=== PATIENT | male | born 1970 | race Hispanic/Latino ===

== ENCOUNTER 2025-03-08 13:30 | Observation (INO) | payer SELFPAY ==
[2025-03-08] VITALS (28 sets, daily range): BP systolic 151–206; BP diastolic 83–109; PULSE 59–80; RESP 13–27; TEMP 36.3; O2SAT 93–99
--- NOTE | ~2025-03-08 | CT_ITS ---
CTA brain carotid Ordering provider: Luisito Gordon MD History: . Acute CVA . Comparison: March 09, 2025 Technique: CT angiogram head and neck was performed following timed intravenous injection of contrast . Thin slice axial images and reformatted coronal images were obtained. Three dimensional reformatted images of the brain were also obtained using a [employer] workstation. Radiation reduction technique ut ilized. The dose-length product was 1985.85 mGy-cm. 100 ML Omnipaque 350 was given IV. FINDINGS: HEAD: --ANTERIOR AND MIDDLE CEREBRAL ARTERIES AND BRANCHES: Normal caliber and contour. --INTERNAL CAROTID ARTERIES: Mild atheromatous disease but no significant stenosis. No occlusion. --BASILAR ARTERY AND BRANCHES: Dominant left vertebral artery. Normal caliber and contour. No atherom atous disease. --POSTERIOR CEREBRAL ARTERIES: Possible narrowing in the right P1 segment. Otherwise, Normal caliber and contour --POSTERIOR COMMUNICATING ARTERIES: Not visualized which is probably related to congenital absence or small size. --ANEURYSM: None visualized. --BRAIN: Please refer to report of CT head performed the same day. --BONES AND SUPERFICIAL SOFT TISSUES: Please refer to report of CT head performed the same day. --PARANASAL SINUSES AND MASTOIDS: Please refer to report of CT head done the same day. NECK: --RIGHT CERVICAL CAROTID SYSTEM: Mild atheromatous disease of the carotid bulb and proximal internal carotid artery without significant stenosis. Percent stenosis per NASCET criteria is 50%. No carotid dissection. Otherwise, no significant atheromatous disease or stenosis of the cervical carotid syste m. --LEFT CERVICAL CAROTID SYSTEM: Severe atheromatous disease of the carotid bulb and proximal internal carotid artery. Percent stenosis per NASCET criteria is 90%. No carotid dissection. Otherwise, no significant atheromatous disease or stenosis of the cervical carotid system. --VERTEBRAL ARTERIES: Dominant left vertebral artery. Very tiny caliber of the right. Nonvisualizatio n of the right vertebral artery is seen opposite C5, C6 and 7 which raises the possibility of retrogr dean flow. --VISUALIZED AORTIC ARCH AND BRANCHING VESSELS: Mild atheromatous disease but no significant stenosis . --SOFT TISSUES: Normal. --CERVICAL SPINE: Age appropriate degenerative changes. IMPRESSION: 1. CTA head and neck. Percent stenosis per NASCET criteria is 90% on the left side and 50% on the right side. 2. Area of narrowing in the right P1 segment of the posterior cerebral artery. 3. Nonvisualization of the right vertebral artery at the levels of C5, C6 and C7. Retrograde flow is possible. Dr. Lerma was notified with the result of the patient at 10:5 p.m. on March 09, 2025. Reviewed, dictated and finalized at location A. IMPRESSION: 1. CTA head and neck. Percent stenosis per NASCET criteria is 90% on the lef t side and 50% on the right side. 2. Area of narrowing in the right P1 segment of the posterior cerebral artery. 3. Nonvisualization of the right vertebral artery at the levels of C5, C6 and C7. Retrograde flow is possible. Dr. Lerma was notified with the result of the patient at 10:5 p.m. on March 09.
--- NOTE | ~2025-03-08 | CT_ITS ---
CTA chest PE abdomen pel Ordering provider: Cira Walton MD History: . CHEST PAIN RULE OUT PE . Comparison: None. Technique: CT angiogram chest was performed following timed intravenous injection of contrast. Thin s lice axial images and reformatted coronal images were obtained. Three dimensional reformatted images of the chest were also obtained using a [employer] workstation. Also, CT of the abdomen and pelvis was pe rformed with IV contrast. . Automated exposure control and iterative reconstruction technique were e mployed. The dose-length product was 602.62 mGy-cm. 100 mL Omnipaque 350 was given IV. FINDINGS: CHEST: --PULMONARY ARTERIES: No pulmonary embolus. --VISUALIZED THORACIC INLET: Normal. --MEDIASTINUM: Aorta/coronary arteries: Mild atheromatous disease. Heart/other: The heart is slightly enlarged. Lymph nodes: Prevascular lymph nodes are noted with the largest measures 1.6 cm. Bilateral small romi r lymph nodes are noted. --LUNGS: No pulmonary nodules or masses. No infiltrates or effusions. No pneumothorax. Dependent atelectatic c hanges. --MUSCULOSKELETAL: Bones: Age appropriate degenerative changes of the spine. Superficial soft tissues: The superficial soft tissues are normal. ABDOMEN/PELVIS: --MUSCULOSKELETAL: Superficial soft tissues: The superficial soft tissues are normal. Bones: Age appropriate degenerative changes of the spine. --UPPER ABDOMINAL ORGANS: Liver: Fat infiltration. Gallbladder: Normal. Spleen: Normal. Stomach/duodenum: Normal. Pancreas: Normal. Adrenals: Normal. Kidneys: Normal. 2 renal arteries are seen on the right side. --PELVIC ORGANS: The bladder is normal. No bladder stones. Slightly enlarged prostate. --BOWEL AND MESENTERY: Colon: No evidence of diverticulitis. Slightly thickened wall of the rectum. Clinical evaluation advi sed. Normal appendix. Small Bowel: Normal. No obstruction. Peritoneum/mesentery: No free air or free fluid. No mesenteric lymphadenopathy. --RETROPERITONEUM: No dissection or aneurysm formation seen. Mild atheromatous disease of the abdominal aorta. No retroperitoneal lymphadenopathy. Small para-aor tic lymph nodes are noted. IMPRESSION: CHEST: 1. No pulmonary embolism. 2. No Aortic dissection. 3. No acute cardiopulmonary pathology. 4. Slightly enlarged prevascular lymph nodes. ABDOMEN/PELVIS: 1. No acute dissection or aneurysm seen. 2. No evidence of appendicitis, diverticulitis or intestinal obstruction. 3. Fat infiltration of the liver. 4. Slight thickening of the wall of the rectum. Clinical evaluation advised. Reviewed, dictated and finalized at location A.
--- NOTE | ~2025-03-08 | MR_ITS ---
EXAMINATION: MR brain/brain stem wo con DATE: 03/10/2025 12:27 INDICATION: Acute stroke TECHNIQUE: Magnetic resonance imaging (MRI) of the brain and brainstem was performed without intraven ous contrast. Sequences included sagittal and axial T1-weighted SE, axial diffusion-weighted FS SE, a xial 3D SWAN, axial T2-weighted FLAIR, and axial T2-weighted FSE. Apparent diffusion coefficient (ADC ) maps were created. COMPARISON: None. FINDINGS: Region of restricted diffusion with associated increased T2 signal at the medial left side of the rm s consistent with acute infarct with associated cytotoxic edema.. No intracranial hemorrhage or abnor mal intracranial mass lesion. There are scattered areas of nonspecific increased T2-weighted signal i ntensity in the cerebral white matter, predominantly involving the deep and periventricular white mat ter. There are no intraparenchymal signal abnormalities seen on the other pulse sequences. The ventri cles are symmetric and normal in size. There are no abnormal extra-axial fluid collections. Flow void s are seen in the cerebral arteries on the T2-weighted sequences consistent with their expected paten cy. Mild mucoperiosteal thickening in the bilateral ethmoid and right maxillary sinuses. Visualized o rbits and soft tissues are unremarkable. IMPRESSION: 1. Acute infarct at the medial left matt. 2. Mild scattered periventricular predominant nonspecific white matter T2 hyperintensity consistent w ith chronic small vessel ischemic disease. Reviewed, dictated and finalized at location A. IMPRESSION: 1. Acute infarct at the medial left matt. 2. Mild scattered periventricular predominant nonspecific white matter T2 hyper intensity consistent with chronic small vessel ischemic disease.
--- NOTE | ~2025-03-08 | XR_ITS ---
XR chest 2V Ordering provider: Cira Walton MD History: 55 years Male with . cp . Comparison: None. FINDINGS: MEDIASTINUM: The cardiac silhouette is not enlarged. LUNGS: No infiltrates, effusions or pneumothorax. OTHER: No free air under the diaphragm. Degenerative changes of the spine. IMPRESSION: No acute cardiopulmonary pathology. Reviewed, dictated and finalized at location A.
--- NOTE | ~2025-03-08 | CT_ITS ---
CT brain wo con Ordering provider: Luisito Gordon MD History: 55 years Male with . symptom ruleout . Comparison: None. Technique: CT of the head without contrast. Radiation reduction technique utilized. The dose-length product was 605.33 mGy-cm. FINDINGS: BRAIN PARENCHYMA AND CSF SPACES: Hypodensity seen in the right posterior frontal/parietal lobe which may be an infarct. MRI evaluation advised. Hypodensity also seen in the matt. This may be acute or ch ronic infarct and less likely artifactual. MRI evaluation advised. No midline shift, mass effect or h emorrhage. The brain parenchyma and CSF spaces are otherwise normal. VISUALIZED PARANASAL SINUSES: Well aerated. MASTOIDS: Well aerated. BONES: The bones appear intact. SOFT TISSUES: Visualized nasopharynx is normal. Superficial soft tissues are normal. IMPRESSION: Hypodensity in the right posterior frontal/parietal area which may indicate acute infarct. Hypodensity in the matt which may be acute or chronic infarct. MRI evaluation advised. Physician: Luisito Gordon MD Was notified with the result of the patient at 6: 6 p.m. on March 09, 2025. Reviewed, dictated and finalized at location A. IMPRESSION: Hypodensity in the right posterior frontal/parietal area which may indicate acu te infarct. Hypodensity in the matt which may be acute or chronic infarct. MRI evaluation a dvised. Physician: Luisito Gordon MD Was notified with the result of the patient at 6: 6 p.m. on March 09, 2025.
--- NOTE | 2025-03-08 13:42 | ECG_ITS ---
Test Date: 2025-03-08 13:54:17 Measurements Intervals [place] Rate: 74 P: 39 SD: 149 QRS: 27 QRSD: 85 T: 73 QT: 369 QTc: 412 Interpretive Statements SINUS RHYTHM LEFT VENTRICULAR HYPERTROPHY AND ST-T CHANGE [VOLTAGE CRITERIA PLUS ST/T ABNORMALITY] No previous ECG available for comparison Electronically Signed On 03-08-2025 15:33:29 CDT by Justina Block M.D.
[2025-03-08 14:16] LABS: Basophils Absolute Auto 0.2 K/mm3 (0.0-0.1); Basophils Percent Auto 1.2 % (0.2-1.2); Eosinophils Absolute Auto 1.3 K/mm3 (0-0.3); Eosinophils Percent Auto 10.2 % (0-4.4); Hematocrit 44.1 % (42.0-52.0); Hemoglobin 14.7 g/dL (14.0-18.0); Immature Granulocyte Absolute 0.05 K/mm3 (0.00-0.031); Immature Granulocyte Percent A 0.4 % (0-0.5); Lymphocytes Absolute Auto 2.47 K/mm3 (0.9-3.2); Lymphocytes Percent Auto 19.7 % (18.3-44.2); Mean Corpuscular HGB Conc 33.3 g/dl (32-36); Mean Corpuscular Hemoglobin 32.1 pg (26-34); Mean Corpuscular Volume 96.3 fl (80-100); Mean Platelet Volume 11.6 fl (7.4-10.4); Monocytes Absolute Auto 1.1 K/mm3 (0.1-0.6); Monocytes Percent Auto 8.4 % (2.6-8.5); Neutrophils Absolute Auto 7.5 K/mm3 (1.3-6.7); Neutrophils Percent Auto 60.1 % (45.5-73.1); Platelet Count Result 281 k/mm3 (150-375); Red Blood Count 4.58 M/mm3 (4.6-6.20); White Blood Count 12.5 K/mm3 (4.5-10.0)
[2025-03-08 14:26] LABS: Alanine Aminotransferase 43 U/L (6-50); Albumin Level 4.5 g/dL (3.5-5.1); Alkaline Phosphatase 82 U/L (38-126); Anion Gap 9 mmol/L (4-12); Aspartate Amino Transferase 43 U/L (17-59); Bilirubin,Total 0.3 mg/dL (0.2-1.3); Blood Urea Nitrogen 23 mg/dL (9-20); Calcium 9.1 mg/dL (8.4-10.2); Carbon Dioxide 25 mmol/L (22-30); Chloride 109 mmol/L (98-107); Estimated CRCL calculation 52 ml/min; Estimated Glomerular Filt Rate > 60; Glucose 103 mg/dL (65-110); Lipase 69 U/L (23-300); Potassium 3.8 mmol/L (3.4-5.0); Sodium 143 mmol/L (137-145)
[2025-03-08 14:27] LABS: Prothrombin Time 13.4 Seconds (11.1-14.7)
[2025-03-08 14:28] LABS: Partial Thromboplastin Time 28.3 Seconds (22.3-36.8)
[2025-03-08 14:38] LABS: Troponin I < 0.012 ng/mL (0.000-0.034)
[2025-03-08] MEDS: ASPIRIN 81 MG CHEWABLE TABLET 324 MG PO (14:48)
--- NOTE | 2025-03-08 15:16 | ED_ITS ---
HPI - Chest Pain General Chief Complaint: Chest Pain Stated Complaint: Chest pain since Monday Time Seen by Provider: 03/08/25 15:15 Source: patient Mode of arrival: ambulatory Limitations: no limitations History of Present Illness HPI narrative: 55 YEARS OLD MALE DOES NOT SPEAK AZERI CAME WITH A FRIEND OF HIS WHO DOES SPEAK AZERI COMPLAINING OF INTERMITTENT CENTRAL CHEST PAIN, ACHING STARTED 1 WEEK AGO ON EXERTION. 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 WORSE WITH ACTIVITIES, BETTER REMAINING STILL. ASSOCIATED WITH SHORTNESS OF BREATH. PATIENT ALSO COMPLAINING OF DIFFUSE ABDOMINAL PAIN. PATIENT DOES NOT TAKE MEDICINE AT HOME, LAST TIME WAS SEEN BY PHYSICIAN OVER 3 YEARS AGO. PATIENT QUIT SMOKING AND DRINKING ALCOHOL 12 YEARS AGO. Related Data Allergies Allergy/AdvReac Type Severity Reaction Status Date / Time No Known Allergies Allergy Verified 03/08/25 13:32 Review of Systems 2 Review of Systems: All systems reviewed & are unremarkable except as noted in HPI and below Exam 2 Narrative: GENERAL APPEARANCE: WELL-DEVELOPED, WELL-NOURISHED SKIN: NORMAL COLOR HEAD: NORMOCEPHALIC, NONTRAUMATIC EYES: CLEAR CONJUNCTIVA ENT: OROPHARYNX NORMAL, EARS NORMAL, NOSE NORMAL NECK: SUPPLE, NONTENDER CHEST AND RESPIRATORY: AIRWAY PATENT, NO RESPIRATORY DISTRESS, NO ACCESSORY MUSCLE USE HEART: REGULAR RATE/RHYTHM ABDOMEN: SOFT, DIFFUSE ABDOMINAL TENDERNESS, NO ORGANOMEGALY, QUIET BOWEL SOUNDS VASCULAR: NORMAL PERIPHERAL PULSES, NORMAL CAPILLARY REFILL. MUSCULOSKELETAL: NORMAL RANGE OF MOTION, NONTENDER BACK NEUROLOGIC: ALERT AND ORIENTED ?3, MANAGER INDUSTRIAL IS NORMAL TESTED, NO GROSS MOTOR DEFICIT Course Consultations Consultation #1: DR HAYNES ADMIT TO HOSPITALIST Date: 03/08/25 Time: 17:50 Vital Signs Vital signs: Vital Signs Temperature 36.3 C L 03/08/25 13:46 Pulse Rate 80 03/08/25 13:46 Respiratory Rate 16 03/08/25 13:46 Blood Pressure 195/100 H 03/08/25 13:46 Pulse Oximetry 98 03/08/25 13:46 Oxygen Delivery Room Air 03/08/25 13:46 Temperature 36.3 C L 03/08/25 13:46 Pulse Rate 66 03/08/25 16:25 Respiratory Rate 20 03/08/25 16:16 Blood Pressure 165/83 H 03/08/25 16:25 Pulse Oximetry 98 03/08/25 16:16 Oxygen Delivery Room Air 03/08/25 14:51 MDM - Chest Pain MDM Narrative Medical decision making narrative: PATIENT CAME WITH INTERMITTENT CHEST PAIN FOR 1 WEEK, ABDOMINAL PAIN FOR THE LAST FEW DAYS VITAL SIGNS SHOWING BLOOD PRESSURE 195/100, OTHERWISE WITHIN LIMIT PHYSICAL EXAMINATION CONSISTENT WITH DIFFUSE ABDOMINAL TENDERNESS, PATIENT DENYING ANY CHEST PAIN AT THAT TIME. DIFFERENTIAL DIAGNOSIS INCLUDE UNCONTROLLED HYPERTENSION CAUSING CONGESTIVE HEART FAILURE, CORONARY ARTERY DISEASE, PANCREATITIS, CHOLECYSTITIS, DIVERTICULITIS, CONSTIPATION OR URINARY TRACT INFECTION BLOOD WORKUP TODAY INCLUDES CBC, CMP, LIPASE, TROPONIN, PROBNP AND COAG SHOWED WBC OF 12.5, OTHERWISE WITHIN NORMAL LIMIT CHEST X-RAY SHOWED NO ACUTE ABNORMALITY URINALYSIS SHOWED EKG ON ARRIVAL SHOWED NORMAL SINUS RHYTHM WITH LVH CRITERIA CT CHEST, ABDOMEN AND PELVIS WITH CONTRAST SHOWED NO SIGNIFICANT ABNORMALITIES DIAGNOSIS: CHEST PAIN, HYPERTENSION, ABNORMAL EKG SHOWING LVH ADMIT TO HOSPITALIST, DISCUSSED WITH Differential Diagnosis Differential diagnosis: Likely other ( ABOVE) Medical Records Data Attestation: I reviewed the patient's medical records. Lab Data Attestation: I reviewed the patient's lab results. 03/08/25 14:03 03/08/25 14:03 Labs: Lab Results 03/08/25 03/08/25 Range/Units 14:03 17:39 WBC 12.5 H (4.5-10.0) K/mm3 RBC 4.58 L (4.6-6.20) M/mm3 Hgb 14.7 (14.0-18.0) g/dL Hct 44.1 (42.0-52.0) % MCV 96.3 (80-100) fl MCH 32.1 (26-34) pg MCHC 33.3 (32-36) g/dl RDW 13.0 (11.5-14.5) % Plt Count 281 (150-375) k/mm3 MPV 11.6 H (7.4-10.4) fl Immature Gran % (Auto) 0.4 (0-0.5) % Neut % (Auto) 60.1 (45.5-73.1) % Lymph % (Auto) 19.7 (18.3-44.2) % [place] % (Auto) 8.4 (2.6-8.5) % Eos % (Auto) 10.2 H (0-4.4) % Baso % (Auto) 1.2 (0.2-1.2) % Lymph # (Auto) 2.47 (0.9-3.2) K/mm3 [place] # (Auto) 1.1 H (0.1-0.6) K/mm3 Eos # (Auto) 1.3 H (0-0.3) K/mm3 Baso # (Auto) 0.2 H (0.0-0.1) K/mm3 Abs Immat Gran (auto) 0.05 H (0.00-0.031) K/mm3 Absolute Neuts (auto) 7.5 H (1.3-6.7) K/mm3 Absolute Nucleated RBC 0.000 (0.0-0.012) K/mm3 Nucleated RBC % 0.0 (0.0-0.2) % PT 13.4 (11.1-14.7) Seconds INR 1.0 APTT 28.3 (22.3-36.8) Seconds Sodium 143 (137-145) mmol/L Potassium 3.8 (3.4-5.0) mmol/L Chloride 109 H (98-107) mmol/L Carbon Dioxide 25 (22-30) mmol/L Anion Gap 9 (4-12) mmol/L BUN 23 H (9-20) mg/dL Creatinine 1.22 (0.7-1.3) mg/dL Estim Creat Clear Calc 52 ml/min Estimated GFR > 60 (59 - ) Glucose 103 (65-110) mg/dL Calcium 9.1 (8.4-10.2) mg/dL Total Bilirubin 0.3 (0.2-1.3) mg/dL AST 43 (17-59) U/L ALT 43 (6-50) U/L Alkaline Phosphatase 82 (38-126) U/L Troponin I < 0.012 Pending (0.000-0.034) ng/mL NT-Pro-B Natriuret Pep 112 H (19.9-100) pg/mL Total Protein 8.0 (6.3-8.2) g/dL Albumin 4.5 (3.5-5.1) g/dL Lipase 69 (23-300) U/L Imaging Data Radiologist's impression: Impressions Chest X-Ray 03/08/25 14:38 IMPRESSION: No acute cardiopulmonary pathology. Chest/Abdomen/Pelvis CTA 03/08/25 16:15 IMPRESSION: CHEST: 1. No pulmonary embolism. 2. No Aortic dissection. 3. No acute cardiopulmonary pathology. 4. Slightly enlarged prevascular lymph nodes. ABDOMEN/PELVIS: 1. No acute dissection or aneurysm seen. 2. No evidence of appendicitis, diverticulitis or intestinal obstruction. 3. Fat infiltration of the liver. 4. Slight thickening of the wall of the rectum. Clinical evaluation advised. ECG Data EKG #1: Attestation: I personally reviewed and interpreted this ECG as follows: ECG completion date: 03/08/25 Interpretation: NORMAL SINUS RHYTHM AT 74 BEATS PER MINUTE, LEFT VENTRICULAR HYPERTROPHY AND ST- T CHANGES, NO PREVIOUS EKG AVAILABLE FOR COMPARISON Discharge Plan Discharge Clinical Impression: Chest pain, Hypertension, LVH (left ventricular hypertrophy) Patient Disposition: Still a Patient Condition: Stable Additional Instructions: ADMIT TO HOSPITALIST Patient Language: Thai Follow-up/Referrals: PHYSICIAN,CRABBING MACHINE OPERATOR [Primary Care Provider] -
[2025-03-08 15:39] LABS: NT Pro B Type Natriuretic Pept 112 pg/mL (19.9-100)
[2025-03-08] MEDS: METOPROLOL TARTRATE INJ 5 MG/5 ML VIAL IV PUSH ×2 (15:40→16:16)
--- NOTE | 2025-03-08 15:43 | PC.NURSE ---
Patient to CT via WC at this time.
--- NOTE | 2025-03-08 16:23 | PC.NURSE ---
Patient has rec'd 2 doses of metoprolol r/t HTN. Patient no longer c/o chest pain, so given the metoprolol doses, discussed holding nitro with MD. Instructed to hold Nitro. VO recieved for 0.5mg dilaudid and 4mg zofran.
[2025-03-08] MEDS: ONDANSETRON INJ 4 MG/2 ML VIAL IV PUSH (16:27)
[2025-03-08] MEDS: HYDROmorphone HCL INJ (*CRX) 2 MG/ML VIAL 0.5 MG IV PUSH (16:28)
--- NOTE | 2025-03-08 17:38 | ECG_ITS ---
Test Date: 2025-03-08 20:32:02 Measurements Intervals [place] Rate: 56 P: 47 OK: 163 QRS: 45 QRSD: 87 T: 83 QT: 439 QTc: 426 Interpretive Statements SINUS BRADYCARDIA LEFT VENTRICULAR HYPERTROPHY AND ST-T CHANGE [VOLTAGE CRITERIA PLUS ST/T ABNORMALITY] Compared to ECG 03/08/2025 17:38:11 Sinus rhythm no longer present ST (T wave) deviation still present Electronically Signed On 03-10-2025 15:20:04 CDT by Sukumar Ernst M.D.
[2025-03-08 18:05] LABS: Troponin I < 0.012 ng/mL (0.000-0.034)
[2025-03-08] MEDS: METOPROLOL TARTRATE 25 MG TABLET PO (18:05)
--- NOTE | 2025-03-08 18:11 | PC.NURSE ---
Patient ambulatory w steady gait to BR
--- NOTE | 2025-03-08 19:41 | P.HP_ITS ---
H&P: [facility] History of Present Illness Date/Time: 03/08/25 19:41 Chief Complaint: Chest Pain Narrative: 55 y/o M with no significant PMH presents here with intermittent chest pain. The patient presents here on 03/08 for further evaluation of intermittent chest pain. He reports this is been ongoing for the past 3-4 days. He describes the chest pain as midsternal with some radiation to his left side, and aggravated by walking. No alleviating factors. Reports associated shortness of breath, nausea, vomiting, diaphoretic, intermittent constipation. Denies palpitations. He arrives significantly hypertensive at 195/100. He has no known history of HTN. Along with the intermittent chest pain, the patient also reports diffuse abdominal pain. This has been present for the past year. He reports it comes an d goes. Pain worsens when he eats and is mores so epigastric. He has not been using OTC such as TYL or NSAIDs. Patient has been avoiding spicy foods for the past 5 years - will occasionally eat a little. He reports associated dark tarry stools. He has a history of smoking and alcohol use, however quit 12 years ago. 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 Initial VS at presentation: 97.3? F, HR 80, R 16, 195/100, and 98% on RA. ED workup showed: WBC 12.5, no anemia, normal coags, no significant electrolyte derangements, creatinine 1.22 and normal GFR, troponin negative x2, and BNP 112. CXR showed no acute cardiopulmonary pathology. Chest/abdomen/pelvis CTA showed no PE, no dissection, no acute cardiopulmonary pathology, slightly enlarged prevascular lymph nodes, no acute dissection/aneurysm, no evidence of appendicitis/diverticulitis/intestinal obstruction, fat infiltration of the liver, slight thickening of the wall the rectum. Initial EKG showed sinus rhythm, left ventricular hypertrophy and ST-T change. No previous EKG available for comparison. Review of Systems Review of Systems: All systems reviewed & are unremarkable except as noted in HPI and below [facility] Past Medical History Medical History Eye trauma branch hit eye, has small speck in it that doesn't bother him Social History Social History Smoking status: Former smoker Alcohol intake: former Substance use: never Do You Feel Safe in your Home?: Yes Lack of Transportation: No Lack of Food: Never True Current Housing: I Have Housing Concerned About Future Housing: YES Difficulty Paying Gas/Electric Bills: YES Difficulty Paying for Meds: YES Currently Unemployed: No Education: Never Attended/Kindergarten Only Difficulty w/ Childcare or Family Care: No Spiritual care concerns: No Meds Home Medications and Allergies Allergies Allergy/AdvReac Type Severity Reaction Status Date / Time No Known Allergies Allergy Verified 03/08/25 13:32 Vital Signs Vital Signs - 24 hr 03/08/25 13:46 03/08/25 14:31 03/08/25 14:51 Temperature 97.3 F L Pulse Rate 80 68 72 Respiratory Rate 16 21 H Blood Pressure 195/100 H 179/90 H Pulse Oximetry 98 96 Oxygen Delivery Room Air 03/08/25 14:51 03/08/25 14:51 03/08/25 15:01 Temperature Pulse Rate 72 71 Respiratory Rate 18 20 Blood Pressure 179/90 H 180/92 H Pulse Oximetry 97 98 97 Oxygen Delivery Room Air 03/08/25 15:36 03/08/25 15:40 03/08/25 15:44 Temperature Pulse Rate 71 70 Respiratory Rate 20 Blood Pressure 188/99 H 188/99 H Pulse Oximetry 97 Oxygen Delivery 03/08/25 15:47 03/08/25 16:02 03/08/25 16:05 Temperature Pulse Rate 72 67 Respiratory Rate 27 H 24 H Blood Pressure 194/96 H 206/94 H 172/91 H Pulse Oximetry 98 97 Oxygen Delivery 03/08/25 16:06 03/08/25 16:08 03/08/25 16:15 Temperature Pulse Rate 67 71 66 Respiratory Rate 22 H 13 14 Blood Pressure 151/109 H Pulse Oximetry 96 99 97 Oxygen Delivery 03/08/25 16:16 03/08/25 16:16 03/08/25 16:25 Temperature Pulse Rate 68 64 66 Respiratory Rate 20 Blood Pressure 174/93 H 165/83 H Pulse Oximetry 98 Oxygen Delivery 03/08/25 16:33 03/08/25 16:53 03/08/25 17:00 Temperature Pulse Rate 66 63 62 Respiratory Rate 19 17 18 Blood Pressure Pulse Oximetry 97 Oxygen Delivery 03/08/25 17:01 03/08/25 17:28 03/08/25 17:30 Temperature Pulse Rate 64 62 65 Respiratory Rate 18 18 19 Blood Pressure 183/99 H Pulse Oximetry 93 96 Oxygen Delivery 03/08/25 17:31 03/08/25 17:41 03/08/25 17:45 Temperature Pulse Rate 66 61 65 Respiratory Rate 21 H 22 H 18 Blood Pressure 184/101 H 178/96 H 178/96 H Pulse Oximetry 95 96 98 Oxygen Delivery 03/08/25 18:05 03/08/25 18:37 03/08/25 19:09 Temperature Pulse Rate 68 63 59 L Respiratory Rate 18 18 Blood Pressure 169/97 H 168/90 H Pulse Oximetry 97 96 Oxygen Delivery Exam Const: General: comfortable and no acute distress Other: , male, nontoxic appearance HENMT: Face/Nose/Sinus: Normal nares present Mouth: Yes moist mucous membranes Eyes: General: appearance normal, both eyes and all related structures Sclera: sclerae normal Pupils: Equal, round and reactive pupils present EOM: EOMs intact bilaterally Resp: Effort & Inspection: normal respiratory effort Auscultation: clear to auscultation bilaterally Cardio: Rate: regular rate Rhythm: regular rhythm Other: +murmur GI: Other: Diffuse abdominal tenderness. Soft, nondistended. Normoactive bowel sounds in all quadrants. Skin: General skin exam: normal color and no rashes or lesions noted Wounds: no wounds Neuro: Speech: normal speech Motor exam (neuro): 5/5 motor strength present throughout Sensory Exam: normal sensation Other: A&O x4 Extrem: General: normal to inspection Psych: Mental Status: mental status grossly normal Affect: normal affect Other: Good insight and judgment, pleasant H&P: Results Labs Labs: Short CBC 03/08/25 Range/Units 14:03 WBC 12.5 H (4.5-10.0) K/mm3 Hgb 14.7 (14.0-18.0) g/dL Hct 44.1 (42.0-52.0) % Plt Count 281 (150-375) k/mm3 BMP 03/08/25 14:03 Sodium 143 Potassium 3.8 Chloride 109 H Carbon Dioxide 25 BUN 23 H Creatinine 1.22 Glucose 103 Calcium 9.1 Cardiac Enzymes 03/08/25 03/08/25 Range/Units 14:03 17:39 Troponin I < 0.012 < 0.012 (0.000-0.034) ng/mL Liver Function 03/08/25 Range/Units 14:03 Total Bilirubin 0.3 (0.2-1.3) mg/dL AST 43 (17-59) U/L ALT 43 (6-50) U/L Alkaline Phosphatase 82 (38-126) U/L Albumin 4.5 (3.5-5.1) g/dL Assessment and Plan Assessment and plan (1) Chest pain: Qualifiers: Chest pain type: unspecified Qualified Code(s): R07.9 - Chest pain, unspecified Code(s): R07.9 - Chest pain, unspecified Status: Acute Assessment and Plan: - EKG, initial: Sinus rhythm, rate 74, LVH and ST-T change, no previous EKG available for comparison. - CXR: No acute cardiopulmonary pathology - CTA chest/abdomen/pelvis: CHEST: 1. No pulmonary embolism. 2. No Aortic dissection. 3. No acute cardiopulmonary pathology. 4. Slightly enlarged prevascular lymph nodes. ABDOMEN/PELVIS: 1. No acute dissection or aneurysm seen. 2. No evidence of appendicitis, diverticulitis or intestinal obstruction. 3. Fat infiltration of the liver. 4. Slight thickening of the wall of the rectum. Clinical evaluation advised. - Troponin: <0.012 x3 - ASA 324 -> hold on further aspirin due to possibility of GI bleed - SL nitro PRN - cardiology consulted, awaiting recs - check lipid panel - no previous cardiac catheterization, stress test, or echo on file new murmur on exam, no previous knowledge of same. Echo ordered. - telemetry monitoring (2) Hypertension: Qualifiers: Hypertension type: primary hypertension Qualified Code(s): I10 - Essential (primary) hypertension Code(s): I10 - Essential (primary) hypertension Status: Acute Assessment and Plan: - previous history of hypertension, not currently on medications - arrived to the ED on 03/08 at 195/100. Given metoprolol 5 mg IV -> BP 168/90. - start amlodipine 5 mg daily (3) Abdominal pain: Qualifiers: Abdominal location: generalized Qualified Code(s): R10.84 - Generalized abdominal pain Code(s): R10.9 - Unspecified abdominal pain Status: Acute Assessment and Plan: - diffuse abdominal pain/epigastric pain for the past year. Has reduced spicy foods for some time which helped to reduce his acid reflux but did not help his abdominal pain. He reports food worsens the pain. Also reporting dark tarry stools. Clinical picture concerning for bleeding gastric ulcer. - GI cocktail x1 - pantoprazole IV b.i.d - GI consulted for further evaluation (4) Black stools: Code(s): K92.1 - Melena Status: Acute Assessment and Plan: - reporting dark tarry stools, not currently on any supplements - clinical picture concerning for gastric ulcer. CT also showed abnormal findings of the rectum. No previous scopes. (5) Abnormal CT of the abdomen: Code(s): R93.5 - Abnormal findings on diagnostic imaging of other abdominal regions, including retroperitoneum Status: Acute Assessment and Plan: - CT showed slight thickening of the wall of the rectum. no previous colonoscopies. - GI consulted Plan Diet: Heart healthy GI Prophylaxis: Not currently indicated DVT Prophylaxis: SCDs IV fluids: None Lines/Tubes: Peripheral IV Code Status: Full code Quality VTE Prophylaxis VTE prophylaxis: mechanical ordered Hospitalist [facility] Advance Care Plan I have confirmed that the patient's Advanced Care Plan is present, code status is documented, or surrogate decision maker is listed in patient medical record.: Yes Medication Reconciliation I have utilized all available resources to obtain, update and review the darian watters current medications (includes all prescriptions, OTC, herbals, cannabis, and nutritional supplements).: Yes
--- NOTE | 2025-03-08 20:29 | ECG_ITS ---
Test Date: 2025-03-08 17:38:11 Measurements Intervals [place] Rate: 61 P: 48 FL: 160 QRS: 41 QRSD: 87 T: 71 QT: 424 QTc: 430 Interpretive Statements SINUS RHYTHM LEFT VENTRICULAR HYPERTROPHY AND ST-T CHANGE [VOLTAGE CRITERIA PLUS ST/T ABNORMALITY] Compared to ECG 03/08/2025 13:54:17 No significant changes Electronically Signed On 03-10-2025 15:15:06 CDT by Sukumar Ernst M.D.
[2025-03-08 20:37] LABS: Troponin I < 0.012 ng/mL (0.000-0.034)
--- NOTE | 2025-03-08 21:23 | ADMGEN ---
This patient, Donald Gonzalez, was admitted to IMU Room 204-01. Patient/family oriented to hospital policies and general routines including ID bracelet, bed and alarms, visiting hours, pain management, procedures, bathroom and other care routines, personal items, smoking policy, room service/diet, and visiting hours. Information on how to activate the Rapid Response Team has been discussed. Patient/Family are encouraged to report perceived risks to care and to ask questions if they do not understand what they are told or what they should do.
[2025-03-09] VITALS (17 sets, daily range): BP systolic 131–190; BP diastolic 71–98; PULSE 53–79; RESP 16–24; TEMP 36.3–36.9; O2SAT 91–97
[2025-03-09] MEDS: BELLADONNA ALK/PHENOB ELIX 10 ML, MAG HYDROX/ALUMINUM HYD/SIMETH 30 ML, LIDOCAINE 2% VI... PO (00:01)
[2025-03-09 04:34] LABS: Basophils Absolute Auto 0.1 K/mm3 (0.0-0.1); Basophils Percent Auto 1.4 % (0.2-1.2); Eosinophils Absolute Auto 1.2 K/mm3 (0-0.3); Eosinophils Percent Auto 12.1 % (0-4.4); Hematocrit 41.8 % (42.0-52.0); Immature Granulocyte Absolute 0.03 K/mm3 (0.00-0.031); Immature Granulocyte Percent A 0.3 % (0-0.5); Lymphocytes Percent Auto 22.2 % (18.3-44.2); Mean Corpuscular HGB Conc 33.5 g/dl (32-36); Mean Corpuscular Hemoglobin 32.3 pg (26-34); Mean Corpuscular Volume 96.3 fl (80-100); Mean Platelet Volume 11.3 fl (7.4-10.4); Monocytes Absolute Auto 1.1 K/mm3 (0.1-0.6); Monocytes Percent Auto 11.1 % (2.6-8.5); Neutrophils Absolute Auto 5.2 K/mm3 (1.3-6.7); Neutrophils Percent Auto 52.9 % (45.5-73.1); Platelet Count Result 258 k/mm3 (150-375); Red Blood Count 4.34 M/mm3 (4.6-6.20); Red Cell Distribution Width 13.2 % (11.5-14.5); White Blood Count 9.9 K/mm3 (4.5-10.0)
[2025-03-09 04:49] LABS: Alanine Aminotransferase 36 U/L (6-50); Albumin Level 3.8 g/dL (3.5-5.1); Alkaline Phosphatase 67 U/L (38-126); Anion Gap 7 mmol/L (4-12); Aspartate Amino Transferase 35 U/L (17-59); Bilirubin,Total 0.3 mg/dL (0.2-1.3); Blood Urea Nitrogen 23 mg/dL (9-20); Calcium 8.7 mg/dL (8.4-10.2); Carbon Dioxide 26 mmol/L (22-30); Chloride 107 mmol/L (98-107); Cholesterol 213 mg/dL (0-200); Estimated CRCL calculation 56 ml/min; Estimated Glomerular Filt Rate > 60; Glucose 133 mg/dL (65-110); HDL Direct 40 mg/dL; Potassium 3.7 mmol/L (3.4-5.0); Sodium 140 mmol/L (137-145); Triglycerides 107 mg/dL (<150)
[2025-03-09 05:00] LABS: LDL Cholesterol Direct 134 mg/dL
--- NOTE | 2025-03-09 06:42 | PM.CNCAR ---
Assessment and Plan Assessment and plan (1) Chest pain: Qualifiers: Chest pain type: unspecified Qualified Code(s): R07.9 - Chest pain, unspecified Code(s): R07.9 - Chest pain, unspecified Status: Acute (2) Hypertension: Qualifiers: Hypertension type: primary hypertension Qualified Code(s): I10 - Essential (primary) hypertension Code(s): I10 - Essential (primary) hypertension Status: Acute (3) LVH (left ventricular hypertrophy): Code(s): I51.7 - Cardiomegaly Status: Acute Plan Problem list: Chest pain Hypertension-new diagnosis Plan: Troponin negative x 3; ACS ruled out TTE today to evaluate LVEF and r/o any RWMA Outpatient stress test Asa 81 mg daily Start carvedilol 3 point 2 5 mg b.i.d. for heart rate and blood pressure controlled. Target blood pressure less than 120/80 mm Hg Check FLP and institute appropriate therapy Good risk factor control including blood pressure, lipids, blood sugar Workup for secondary causes of hypertension for poorly controlled hypertension Workup for GI symptoms per primary team History of Present Illness History of Present Illness Consult date/time: 03/09/25 06:42 Reason For Visit: Chest pain, Hypertension, EKG showing LVH Narrative: 55 y/o Albanian speaking male with no significant PMH presents with CC of chest pain. He reports off and on chest pain for the past few days. Pain is located in the mid sternal region with radiation to his left arm. It is aggravated by exertion and not relieved with anything. He has associated SOB, nausea, vomiting, diaphoresis, and intermittent constipation. He also reports diffuse abdominal pain for the past year that comes and goes. Pain is worse when he eats. Patient has been avoiding spicy foods for the past 5 years. He reports associated dark tarry stools. He has a history of smoking and alcohol use, however quit 12 years ago. No palpitations, dizziness, lightheadedness, pre syncope, syncope, leg swelling, recent weight gain, orthopnea, or PND. His BP on arrival is 195/100. Cardiology is consulted for further recommendations for patient's chest pain. Work up: Creatinine: 1.18 Troponin: negative x 3 BNP: 112 EKG: sinus rhythm, LVH CXR: No acute cardiopulmonary pathology CT chest, abdomen, pelvis: No PE, aortic dissection, slightly enlarged prevascular lymph nodes; No acute dissection or aneurysm; no evidence of appendicitis, diverticulitis or intestinal obstruction there is fat infiltration of the liver; there is slight thickening of the wall of the rectum Review of Systems Review of Systems: A complete review of systems was performed and negative other than those mentioned in the HPI. [facility], [facility] Past Medical History Medical History Eye trauma branch hit eye, has small speck in it that doesn't bother him Social History Social History Smoking status: Former smoker Alcohol intake: former Substance use: never Do You Feel Safe in your Home?: Yes Lack of Transportation: No Lack of Food: Never True Current Housing: I Have Housing Concerned About Future Housing: YES Difficulty Paying Gas/Electric Bills: YES Difficulty Paying for Meds: YES Currently Unemployed: No Education: Never Attended/Kindergarten Only Difficulty w/ Childcare or Family Care: No Spiritual care concerns: No Meds Home Medications and Allergies Home Medications ?Medication ?Instructions ?Recorded ?Confirmed ?Type No Home Medications 03/08/25 03/08/25 History Allergies Allergy/AdvReac Type Severity Reaction Status Date / Time No Known Allergies Allergy Verified 03/08/25 13:32 Vital Signs Vital Signs - 24 hr 03/08/25 13:46 03/08/25 14:31 03/08/25 14:51 Temperature 36.3 C L Pulse Rate 80 68 72 Respiratory Rate 16 21 H Blood Pressure 195/100 H 179/90 H Pulse Oximetry 98 96 Oxygen Delivery Room Air 03/08/25 14:51 03/08/25 14:51 03/08/25 15:01 Temperature Pulse Rate 72 71 Respiratory Rate 18 20 Blood Pressure 179/90 H 180/92 H Pulse Oximetry 97 98 97 Oxygen Delivery Room Air 03/08/25 15:36 03/08/25 15:40 03/08/25 15:44 Temperature Pulse Rate 71 70 Respiratory Rate 20 Blood Pressure 188/99 H 188/99 H Pulse Oximetry 97 Oxygen Delivery 03/08/25 15:47 03/08/25 16:02 03/08/25 16:05 Temperature Pulse Rate 72 67 Respiratory Rate 27 H 24 H Blood Pressure 194/96 H 206/94 H 172/91 H Pulse Oximetry 98 97 Oxygen Delivery 03/08/25 16:06 03/08/25 16:08 03/08/25 16:15 Temperature Pulse Rate 67 71 66 Respiratory Rate 22 H 13 14 Blood Pressure 151/109 H Pulse Oximetry 96 99 97 Oxygen Delivery 03/08/25 16:16 03/08/25 16:16 03/08/25 16:25 Temperature Pulse Rate 68 64 66 Respiratory Rate 20 Blood Pressure 174/93 H 165/83 H Pulse Oximetry 98 Oxygen Delivery 03/08/25 16:33 03/08/25 16:53 03/08/25 17:00 Temperature Pulse Rate 66 63 62 Respiratory Rate 19 17 18 Blood Pressure Pulse Oximetry 97 Oxygen Delivery 03/08/25 17:01 03/08/25 17:28 03/08/25 17:30 Temperature Pulse Rate 64 62 65 Respiratory Rate 18 18 19 Blood Pressure 183/99 H Pulse Oximetry 93 96 Oxygen Delivery 03/08/25 17:31 03/08/25 17:41 03/08/25 17:45 Temperature Pulse Rate 66 61 65 Respiratory Rate 21 H 22 H 18 Blood Pressure 184/101 H 178/96 H 178/96 H Pulse Oximetry 95 96 98 Oxygen Delivery 03/08/25 18:05 03/08/25 18:37 03/08/25 19:09 Temperature Pulse Rate 68 63 59 L Respiratory Rate 18 18 Blood Pressure 169/97 H 168/90 H Pulse Oximetry 97 96 Oxygen Delivery 03/08/25 22:00 03/09/25 00:00 03/09/25 00:00 Temperature 36.6 C Pulse Rate 69 53 L 62 Respiratory Rate 16 Blood Pressure 149/71 H Pulse Oximetry 97 Oxygen Delivery 03/09/25 02:00 03/09/25 04:00 03/09/25 04:00 Temperature 36.7 C Pulse Rate 62 64 62 Respiratory Rate 16 Blood Pressure 139/76 Pulse Oximetry 95 Oxygen Delivery 03/09/25 06:00 Temperature Pulse Rate 79 Respiratory Rate Blood Pressure Pulse Oximetry Oxygen Delivery Exam Narrative: General: Alert oriented x3, no acute distress Neck: Supple, no JVD Chest: Bilaterally clear to auscultation, no rales or rhonchi Cardiac: S1, S2 +, regular rate, regular rhythm, no murmurs or rubs Extremities: No pedal edema, no skin rash Neurologic: Alert and oriented x3, no focal neurological deficits Results Labs and Meds 03/09/25 04:02 03/09/25 04:02 Lab results: Cardiac Enzymes 03/08/25 03/08/25 03/08/25 Range/Units 14:03 17:39 19:56 AST 43 (17-59) U/L Troponin I < 0.012 < 0.012 < 0.012 (0.000-0.034) ng/mL 03/09/25 Range/Units 04:02 AST 35 (17-59) U/L Troponin I (0.000-0.034) ng/mL Coagulation 03/08/25 Range/Units 14:03 PT 13.4 (11.1-14.7) Seconds APTT 28.3 (22.3-36.8) Seconds Lipids 03/09/25 Range/Units 04:02 Triglycerides 107 (<150) mg/dL Cholesterol 213 H (0-200) mg/dL CBC 03/08/25 03/09/25 Range/Units 14:03 04:02 WBC 12.5 H 9.9 (4.5-10.0) K/mm3 RBC 4.58 L 4.34 L (4.6-6.20) M/mm3 Hgb 14.7 14.0 (14.0-18.0) g/dL Hct 44.1 41.8 L (42.0-52.0) % Plt Count 281 258 (150-375) k/mm3 Lymph # (Auto) 2.47 2.20 (0.9-3.2) K/mm3 [place] # (Auto) 1.1 H 1.1 H (0.1-0.6) K/mm3 Eos # (Auto) 1.3 H 1.2 H (0-0.3) K/mm3 Baso # (Auto) 0.2 H 0.1 (0.0-0.1) K/mm3 Comprehensive Metabolic Panel 03/08/25 03/09/25 Range/Units 14:03 04:02 Sodium 143 140 (137-145) mmol/L Potassium 3.8 3.7 (3.4-5.0) mmol/L Chloride 109 H 107 (98-107) mmol/L Carbon Dioxide 25 26 (22-30) mmol/L BUN 23 H 23 H (9-20) mg/dL Creatinine 1.22 1.18 (0.7-1.3) mg/dL Glucose 103 133 H (65-110) mg/dL Calcium 9.1 8.7 (8.4-10.2) mg/dL AST 43 35 (17-59) U/L ALT 43 36 (6-50) U/L Alkaline Phosphatase 82 67 (38-126) U/L Total Protein 8.0 7.0 (6.3-8.2) g/dL Albumin 4.5 3.8 (3.5-5.1) g/dL Intake and Output 03/08/25 03/08/25 03/09/25 15:59 23:59 07:59 Intake Total 350 Output Total 700 Balance -350 Intake: Oral 350 Output: Urine 700 Patient Weight 03/09/25 23:59 Weight 78.3 kg EKG Interpretation EKG shows: sinus rhythm (LVH )
[2025-03-09] MEDS: amLODIPine BESYLATE 5 MG TABLET PO (10:05)
[2025-03-09] MEDS: PANTOPRAZOLE SODIUM IV 40 MG VIAL IV PUSH ×2 (10:05→20:30)
--- NOTE | 2025-03-09 14:40 | P.CONGI_ITS ---
Assessment and Plan Assessment and plan (1) Dyspepsia: Code(s): R10.13 - Epigastric pain Status: Acute Assessment and Plan: over 1 year, no need of urgent endoscopy we will set up for outpatient, no objections to discharge by gi standpoint ppi daily for now (2) Abdominal pain: Qualifiers: Abdominal location: generalized Qualified Code(s): R10.84 - Generalized abdominal pain Code(s): R10.9 - Unspecified abdominal pain Status: Acute Assessment and Plan: chronic, no recent changes (3) Dark stools: Code(s): R19.5 - Other fecal abnormalities Status: Acute Assessment and Plan: no anemia will do scopes as outpatient (4) Hypertension: Qualifiers: Hypertension type: primary hypertension Qualified Code(s): I10 - Essential (primary) hypertension Code(s): I10 - Essential (primary) hypertension Status: Acute (5) Chest pain: Qualifiers: Chest pain type: unspecified Qualified Code(s): R07.9 - Chest pain, unspecified Code(s): R07.9 - Chest pain, unspecified Status: Acute Assessment and Plan: also evaluated by office services specialist here (6) Colon cancer screening: Code(s): Z12.11 - Encounter for screening for malignant neoplasm of colon Status: Acute Assessment and Plan: plan colonoscopy as outpatient, my office will arrange GI Consult Note Consult date/time: 03/09/25 14:40 Reason for consult: dyspepsia, abdominal pain HPI: Donald Gonzalez is a 55 year old male originally from [place] here for almost 15 years (he only speaks Arabic and interview was done in Arabic), he has not seen a doctor in quite some time and is not taking medications in regular basis. He has been having headaches and chest pain, he went to [facility] and took BP which was very high and then came to ER. Also reported chest pain but resolved now. He mentioned dyspepsia and abdominal discomfort for over 1 year, never had scopes, no weight loss, he has dark stools but when I asked if tarry stools he denied and no blood in stools. No anemia in blood work, normal coags, creatinine 1.22, troponin negative x2, and BNP 112. CXR showed no acute cardiopulmonary pathology. Chest/abdomen/pelvis CTA showed no PE, no dissection, no acute cardiopulmonary pathology, evaluated by cardiology. Review of Systems 2 Constitutional: Constitutional: Reports headache(s) and Denies weakness Eyes: Eyes: Denies blurry vision ENT: Reports Normal hearing present and Denies neck pain Cardiovascular: Cardiovascular: Reports chest pain and Denies dyspnea Respiratory: Respiratory: Denies dyspnea Gastrointestinal: Gastrointestinal: Reports abdominal pain Genitourinary: Genitourinary: Denies dysuria Musculoskeletal: Musculoskeletal: Denies neck pain Integumentary/Breasts: Skin/Breast: Denies dry skin Neurologic: Reports Normal hearing present and Denies weakness Psychiatric: Psychiatric: Denies anxiety Endocrine: Endocrine: Denies change in body appearance Hematologic/Lymphatic: Hematologic/Lymphatic: Denies easy bleeding Allergic/Immunologic: Allergic/Immunologic: Denies urticaria PMFSH Past Medical History Medical History (Updated 03/09/25 @ 14:45 by Jose C Reese MD) Colon cancer screening Dark stools Dyspepsia Eye trauma branch hit eye, has small speck in it that doesn't bother him Social History Social History Smoking status: Former smoker Alcohol intake: former Substance use: never Do You Feel Safe in your Home?: Yes Lack of Transportation: No Lack of Food: Never True Current Housing: I Have Housing Concerned About Future Housing: YES Difficulty Paying Gas/Electric Bills: YES Difficulty Paying for Meds: YES Currently Unemployed: No Education: Never Attended/Kindergarten Only Difficulty w/ Childcare or Family Care: No Spiritual care concerns: No Meds Home Medications and Allergies Home Medications ?Medication ?Instructions ?Recorded ?Confirmed ?Type No Home Medications 03/08/25 03/08/25 History Allergies Allergy/AdvReac Type Severity Reaction Status Date / Time No Known Allergies Allergy Verified 03/08/25 13:32 Vital Signs Vital Signs - 24 hr 03/08/25 14:51 03/08/25 14:51 03/08/25 14:51 Temperature Pulse Rate 72 72 Respiratory Rate 18 Blood Pressure 179/90 H Pulse Oximetry 97 98 Oxygen Delivery Room Air 03/08/25 15:01 03/08/25 15:36 03/08/25 15:40 Temperature Pulse Rate 71 71 70 Respiratory Rate 20 20 Blood Pressure 180/92 H 188/99 H Pulse Oximetry 97 97 Oxygen Delivery 03/08/25 15:44 03/08/25 15:47 03/08/25 16:02 Temperature Pulse Rate 72 Respiratory Rate 27 H Blood Pressure 188/99 H 194/96 H 206/94 H Pulse Oximetry 98 Oxygen Delivery 03/08/25 16:05 03/08/25 16:06 03/08/25 16:08 Temperature Pulse Rate 67 67 71 Respiratory Rate 24 H 22 H 13 Blood Pressure 172/91 H 151/109 H Pulse Oximetry 97 96 99 Oxygen Delivery 03/08/25 16:15 03/08/25 16:16 03/08/25 16:16 Temperature Pulse Rate 66 68 64 Respiratory Rate 14 20 Blood Pressure 174/93 H Pulse Oximetry 97 98 Oxygen Delivery 03/08/25 16:25 03/08/25 16:33 03/08/25 16:53 Temperature Pulse Rate 66 66 63 Respiratory Rate 19 17 Blood Pressure 165/83 H Pulse Oximetry 97 Oxygen Delivery 03/08/25 17:00 03/08/25 17:01 03/08/25 17:28 Temperature Pulse Rate 62 64 62 Respiratory Rate 18 18 18 Blood Pressure 183/99 H Pulse Oximetry 93 Oxygen Delivery 03/08/25 17:30 03/08/25 17:31 03/08/25 17:41 Temperature Pulse Rate 65 66 61 Respiratory Rate 19 21 H 22 H Blood Pressure 184/101 H 178/96 H Pulse Oximetry 96 95 96 Oxygen Delivery 03/08/25 17:45 03/08/25 18:05 03/08/25 18:37 Temperature Pulse Rate 65 68 63 Respiratory Rate 18 18 Blood Pressure 178/96 H 169/97 H Pulse Oximetry 98 97 Oxygen Delivery 03/08/25 19:09 03/08/25 22:00 03/09/25 00:00 Temperature 97.8 F Pulse Rate 59 L 69 53 L Respiratory Rate 18 16 Blood Pressure 168/90 H 149/71 H Pulse Oximetry 96 97 Oxygen Delivery 03/09/25 00:00 03/09/25 02:00 03/09/25 04:00 Temperature 98.1 F Pulse Rate 62 62 64 Respiratory Rate 16 Blood Pressure 139/76 Pulse Oximetry 95 Oxygen Delivery 03/09/25 04:00 03/09/25 06:00 03/09/25 07:58 Temperature 97.4 F L Pulse Rate 62 79 61 Respiratory Rate 16 Blood Pressure 131/71 Pulse Oximetry 91 Oxygen Delivery 03/09/25 08:00 03/09/25 10:00 03/09/25 11:25 Temperature 97.5 F L Pulse Rate 68 72 62 Respiratory Rate 24 H Blood Pressure 168/79 H Pulse Oximetry 96 Oxygen Delivery 03/09/25 12:00 Temperature Pulse Rate 79 Respiratory Rate Blood Pressure Pulse Oximetry Oxygen Delivery Exam 2 Const: General: comfortable and no acute distress HENMT: Face/Nose/Sinus: Normal nares present Eyes: General: appearance normal, both eyes and all related structures Neck: Neck: supple Resp: Auscultation: clear to auscultation bilaterally Cardio: Rate: regular rate Rhythm: regular rhythm GI: Inspection: non-distended GI Palp: Yes Soft to palpation and No Guarding due to palpation present (GI) Auscultation: normal bowel sounds Skin: General skin exam: normal color Neuro: Speech: normal speech Motor exam (neuro): 5/5 motor strength present throughout Extrem: General: normal to inspection Psych: Mental Status: mental status grossly normal Results Labs 03/09/25 04:02 03/09/25 04:02 Labs: Short CBC 03/09/25 Range/Units 04:02 WBC 9.9 (4.5-10.0) K/mm3 Hgb 14.0 (14.0-18.0) g/dL Hct 41.8 L (42.0-52.0) % Plt Count 258 (150-375) k/mm3 [facility] 03/09/25 04:02 Sodium 140 Potassium 3.7 Chloride 107 Carbon Dioxide 26 BUN 23 H Creatinine 1.18 Glucose 133 H Calcium 8.7 Cardiac Enzymes 03/08/25 03/08/25 Range/Units 17:39 19:56 Troponin I < 0.012 < 0.012 (0.000-0.034) ng/mL Liver Function 03/09/25 Range/Units 04:02 Total Bilirubin 0.3 (0.2-1.3) mg/dL AST 35 (17-59) U/L ALT 36 (6-50) U/L Alkaline Phosphatase 67 (38-126) U/L Albumin 3.8 (3.5-5.1) g/dL
--- NOTE | 2025-03-09 16:16 | P.DS_ITS ---
DS: Admitting Diagnosis Discharge Date 03/09/2025 Admitting Diagnosis Chest pain DS: Discharge Diagnosis Discharge Diagnosis (1) Chest pain: Qualifiers: Chest pain type: unspecified Qualified Code(s): R07.9 - Chest pain, unspecified Code(s): R07.9 - Chest pain, unspecified Status: Acute Assessment and Plan: - EKG, initial: Sinus rhythm, rate 74, LVH and ST-T change, no previous EKG available for comparison. - CXR: No acute cardiopulmonary pathology - CTA chest/abdomen/pelvis: CHEST: 1. No pulmonary embolism. 2. No Aortic dissection. 3. No acute cardiopulmonary pathology. 4. Slightly enlarged prevascular lymph nodes. ABDOMEN/PELVIS: 1. No acute dissection or aneurysm seen. 2. No evidence of appendicitis, diverticulitis or intestinal obstruction. 3. Fat infiltration of the liver. 4. Slight thickening of the wall of the rectum. Clinical evaluation advised. - Troponin: <0.012 x3 - ASA 324 -> hold on further aspirin due to possibility of GI bleed - SL nitro PRN - cardiology consulted, awaiting recs - check lipid panel - no previous cardiac catheterization, stress test, or echo on file new murmur on exam, no previous knowledge of same. Echo ordered. - telemetry monitoring (2) Hypertension: Qualifiers: Hypertension type: primary hypertension Qualified Code(s): I10 - Essential (primary) hypertension Code(s): I10 - Essential (primary) hypertension Status: Acute Assessment and Plan: - previous history of hypertension, not currently on medications - arrived to the ED on 03/08 at 195/100. Given metoprolol 5 mg IV -> BP 168/90. - start amlodipine 5 mg daily (3) Abdominal pain: Qualifiers: Abdominal location: generalized Qualified Code(s): R10.84 - Generalized abdominal pain Code(s): R10.9 - Unspecified abdominal pain Status: Acute Assessment and Plan: - diffuse abdominal pain/epigastric pain for the past year. Has reduced spicy foods for some time which helped to reduce his acid reflux but did not help his abdominal pain. He reports food worsens the pain. Also reporting dark tarry stools. Clinical picture concerning for bleeding gastric ulcer. - GI cocktail x1 - pantoprazole IV b.i.d - GI consulted for further evaluation (4) Black stools: Code(s): K92.1 - Melena Status: Acute Assessment and Plan: - reporting dark tarry stools, not currently on any supplements - clinical picture concerning for gastric ulcer. CT also showed abnormal findings of the rectum. No previous scopes. (5) Abnormal CT of the abdomen: Code(s): R93.5 - Abnormal findings on diagnostic imaging of other abdominal regions, including retroperitoneum Status: Acute Assessment and Plan: - CT showed slight thickening of the wall of the rectum. no previous colonoscopies. - GI consulted DS: Summary Hospital Course Hospital Course: 55 y/o M with no significant PMH presents here with intermittent chest pain. The patient presents here on 03/08 for further evaluation of intermittent chest pain. He reports this is been ongoing for the past 3-4 days. He describes the chest pain as midsternal with some radiation to his left side, and aggravated by walking. No alleviating factors. Reports associated shortness of breath, nausea, vomiting, diaphoretic, intermittent constipation. Denies palpitations. He arrives significantly hypertensive at 195/100. He has no known history of HTN. Along with the intermittent chest pain, the patient also reports diffuse abdominal pain. This has been present for the past year. He reports it comes and goes. Pain worsens when he eats and is mores so epigastric. He has not been using OTC such as TYL or NSAIDs. Patient has been avoiding spicy foods for the past 5 years - will occasionally eat a little. He reports associated dark tarry stools. He has a history of smoking and alcohol use, however quit 12 years ago. Guamanian-speaking, insurance claims representative utilized. Initial VS at presentation: 97.3? F, HR 80, R 16, 195/100, and 98% on RA. ED workup showed: WBC 12.5, no anemia, normal coags, no significant electrolyte derangements, creatinine 1.22 and normal GFR, troponin negative x2, and BNP 112. CXR showed no acute cardiopulmonary pathology. Chest/abdomen/pelvis CTA showed no PE, no dissection, no acute cardiopulmonary pathology, slightly enlarged prevascular lymph nodes, no acute dissection/aneurysm, no evidence of appendicitis/diverticulitis/intestinal obstruction, fat infiltration of the liver, slight thickening of the wall the rectum. Initial EKG showed sinus rhythm, left ventricular hypertrophy and ST-T change. No previous EKG available for comparison. In regards to possible GI bleed, evaluated the patient and recommend PPI and to follow up as OP. In regards to chest pain, Troponin negative x 3; ACS ruled out cardiology evaluate the patient and recommend TTE today to evaluate LVEF and r/o any RWMA .Outpatient stress test .Asa 81 mg daily.Start carvedilol 12.5 mg b.i.d. for heart rate and blood pressure controlled. Target blood pressure less than 120/80 mm Hg.Check FLP and institute appropriate therapy During the evaluation patient reported few days ago he had mild right arm numbness. CT performed. Status at Discharge Cognitive/behavioral status at discharge: Stable Time Spent with Patient Time attestation: Total time spent providing and/or coordinating discharge services:45 minutes Exam Const: General: comfortable and no acute distress Other: , male, nontoxic appearance HENMT: Face/Nose/Sinus: Normal nares present Mouth: Yes moist mucous membranes Eyes: General: appearance normal, both eyes and all related structures Sclera: sclerae normal Pupils: Equal, round and reactive pupils present EOM: EOMs intact bilaterally Resp: Effort & Inspection: normal respiratory effort Auscultation: clear to auscultation bilaterally Cardio: Rate: regular rate Rhythm: regular rhythm Other: +murmur GI: Other: Diffuse abdominal tenderness. Soft, nondistended. Normoactive bowel sounds in all quadrants. Skin: General skin exam: normal color and no rashes or lesions noted Wounds: no wounds Neuro: Cranial nerves: Yes Equal, round and reactive pupils present Speech: normal speech Motor exam (neuro): 5/5 motor strength present throughout Sensory Exam: normal sensation Other: A&O x4 Extrem: General: normal to inspection Psych: Mental Status: mental status grossly normal Affect: normal affect Other: Good insight and judgment, pleasant DS: Data Data Completed and Pending Labs on day of discharge: Labs from last 24 hours 03/09/25 03/08/25 03/08/25 04:02 19:56 17:39 WBC 9.9 RBC 4.34 L Hgb 14.0 Hct 41.8 L MCV 96.3 MCH 32.3 MCHC 33.5 RDW 13.2 Plt Count 258 MPV 11.3 H Immature Gran % (Auto) 0.3 Neut % (Auto) 52.9 Lymph % (Auto) 22.2 [place] % (Auto) 11.1 H Eos % (Auto) 12.1 H Baso % (Auto) 1.4 H Lymph # (Auto) 2.20 [place] # (Auto) 1.1 H Eos # (Auto) 1.2 H Baso # (Auto) 0.1 Abs Immat Gran (auto) 0.03 Absolute Neuts (auto) 5.2 Absolute Nucleated RBC 0.000 Nucleated RBC % 0.0 Sodium 140 Potassium 3.7 Chloride 107 Carbon Dioxide 26 Anion Gap 7 BUN 23 H Creatinine 1.18 Estim Creat Clear Calc 56 Estimated GFR > 60 Glucose 133 H Calcium 8.7 Total Bilirubin 0.3 AST 35 ALT 36 Alkaline Phosphatase 67 Troponin I < 0.012 < 0.012 Total Protein 7.0 Albumin 3.8 Triglycerides 107 Cholesterol 213 H LDL Cholesterol Direct 134 HDL Direct 40 Imaging Radiologist's impression: ITS Impressions Chest X-Ray 03/08/25 14:38 IMPRESSION: No acute cardiopulmonary pathology. Chest/Abdomen/Pelvis CTA 03/08/25 16:15 IMPRESSION: CHEST: 1. No pulmonary embolism. 2. No Aortic dissection. 3. No acute cardiopulmonary pathology. 4. Slightly enlarged prevascular lymph nodes. ABDOMEN/PELVIS: 1. No acute dissection or aneurysm seen. 2. No evidence of appendicitis, diverticulitis or intestinal obstruction. 3. Fat infiltration of the liver. 4. Slight thickening of the wall of the rectum. Clinical evaluation advised. Discharge Plan Discharge Attending physician on discharge: Luisito Gordon Consulting providers: Adrián Mortensen; Kira Perez; Jose C Cervantes Discharging Clinician: Luisito Gordon Anticipated Discharge Date/Time: 03/09/25 17:08 Patient Disposition: Home Activity: as tolerated Diet: heart healthy Discharge Instructions: Started Carvedilol 12.5 mg PO BID. Please titrate the dose with PCP Check blood pressure 1 to 2 times a day. Record and bring into your doctor for review. Call your doctor if your blood pressure is greater than 180/110 or less than 90/45. Walk with cane or other assist device. Take precautions to avoid falls. Rise slowly from a lying or sitting position. Pause before standing or walking. Contact your doctor or call 911 and come to the Emergency Room if you have any type of trauma, lightheadedness with standing or other worrisome symptoms. Avoid NSAIDs (ibuprofen, naproxen, Aleve). Tylenol is safe to take. Follow-up with your primary care provider in 1-2 weeks. Please call for appointment. Follow-up with Cardiology in 2-4 weeks. Please call for an appointment. Thank you for using [facility] for your health care needs. Patient Instructions: Antibiotic Form, Chest Pain (DC), Hypertension (DC) Patient Language: Guamanian Stand Alone Forms: General Discharge Information Follow-up/Referrals: PHYSICIAN,BRAZER CRAWLER TORCH [Primary Care Provider] - Jose C Reese MD [Physician] - Kira Perez MD [Physician] - Discharge Medications: New amlodipine [Norvasc] 5 mg Tablet 5 mg PO DAILY Qty: 30 0RF carvedilol 12.5 mg tablet 12.5 mg PO BID Qty: 30 0RF Rx Instructions: must administer with a meal/food No Action No Home Medications Date of admission: 03/08/25 18:11 Primary Care Provider: PHYSICIAN,BRAZER CRAWLER TORCH Admitting Provider: Randa Patricio Attending physician on admission: Randa Patricio Condition: Stable
--- NOTE | 2025-03-09 18:20 | PM.IMPN ---
Progress Note: A&P Assessment and Plan (1) Chest pain: Qualifiers: Chest pain type: unspecified Qualified Code(s): R07.9 - Chest pain, unspecified Code(s): R07.9 - Chest pain, unspecified Status: Acute Assessment and Plan: - EKG, initial: Sinus rhythm, rate 74, LVH and ST-T change, no previous EKG available for comparison. - CXR: No acute cardiopulmonary pathology - CTA chest/abdomen/pelvis: CHEST: 1. No pulmonary embolism. 2. No Aortic dissection. 3. No acute cardiopulmonary pathology. 4. Slightly enlarged prevascular lymph nodes. ABDOMEN/PELVIS: 1. No acute dissection or aneurysm seen. 2. No evidence of appendicitis, diverticulitis or intestinal obstruction. 3. Fat infiltration of the liver. 4. Slight thickening of the wall of the rectum. Clinical evaluation advised. - Troponin: <0.012 x3 - ASA 324 -> hold on further aspirin due to possibility of GI bleed - SL nitro PRN - cardiology consulted, awaiting recs - check lipid panel - no previous cardiac catheterization, stress test, or echo on file new murmur on exam, no previous knowledge of same. Echo ordered. - telemetry monitoring (2) Hypertension: Qualifiers: Hypertension type: primary hypertension Qualified Code(s): I10 - Essential (primary) hypertension Code(s): I10 - Essential (primary) hypertension Status: Acute Assessment and Plan: - previous history of hypertension, not currently on medications - arrived to the ED on 03/08 at 195/100. Given metoprolol 5 mg IV -> BP 168/90. - start amlodipine 5 mg daily (3) Abdominal pain: Qualifiers: Abdominal location: generalized Qualified Code(s): R10.84 - Generalized abdominal pain Code(s): R10.9 - Unspecified abdominal pain Status: Acute Assessment and Plan: - diffuse abdominal pain/epigastric pain for the past year. Has reduced spicy foods for some time which helped to reduce his acid reflux but did not help his abdominal pain. He reports food worsens the pain. Also reporting dark tarry stools. Clinical picture concerning for bleeding gastric ulcer. - GI cocktail x1 - pantoprazole IV b.i.d - GI consulted for further evaluation (4) Black stools: Code(s): K92.1 - Melena Status: Acute Assessment and Plan: - reporting dark tarry stools, not currently on any supplements - clinical picture concerning for gastric ulcer. CT also showed abnormal findings of the rectum. No previous scopes. (5) Abnormal CT of the abdomen: Code(s): R93.5 - Abnormal findings on diagnostic imaging of other abdominal regions, including retroperitoneum Status: Acute Assessment and Plan: - CT showed slight thickening of the wall of the rectum. no previous colonoscopies. - GI consulted (6) CVA (cerebral vascular accident): Code(s): I63.9 - Cerebral infarction, unspecified Status: Acute Assessment and Plan: CT Head:Hypodensity in the right posterior frontal/parietal area which may indicate acute infarct.Hypodensity in the matt which may be acute or chronic infarct. MRI evaluation advised. MRI: Pending CTA: Pending ECHO: Pending Add aspirin and statin LDL goal less than 70 Permissive hypertension less than 220/120 if no thrombolytics. Neurology consulted Speech and swallow evaluation PT/OT eval Bedside swallow eval Subjective Date/time seen: 03/09/25 18:20 Interval history: 55 y/o M with no significant PMH presents here with intermittent chest pain. The patient presents here on 03/08 for further evaluation of intermittent chest pain. He reports this is been ongoing for the past 3-4 days. He describes the chest pain as midsternal with some radiation to his left side, and aggravated by walking. No alleviating factors. Reports associated shortness of breath, nausea, vomiting, diaphoretic, intermittent constipation. Denies palpitations. He arrives significantly hypertensive at 195/100. He has no known history of HTN. Along with the intermittent chest pain, the patient also reports diffuse abdominal pain. This has been present for the past year. He reports it comes and goes. Pain worsens when he eats and is mores so epigastric. He has not been using OTC such as TYL or NSAIDs. Patient has been avoiding spicy foods for the past 5 years - will occasionally eat a little. He reports associated dark tarry stools. He has a history of smoking and alcohol use, however quit 12 years ago. Hebrew-speaking, legal transcriptionist utilized. Initial VS at presentation: 97.3? F, HR 80, R 16, 195/100, and 98% on RA. ED workup showed: WBC 12.5, no anemia, normal coags, no significant electrolyte derangements, creatinine 1.22 and normal GFR, troponin negative x2, and BNP 112. CXR showed no acute cardiopulmonary pathology. Chest/abdomen/pelvis CTA showed no PE, no dissection, no acute cardiopulmonary pathology, slightly enlarged prevascular lymph nodes, no acute dissection/aneurysm, no evidence of appendicitis/diverticulitis/intestinal obstruction, fat infiltration of the liver, slight thickening of the wall the rectum. Initial EKG showed sinus rhythm, left ventricular hypertrophy and ST-T change. No previous EKG available for comparison. In regards to possible GI bleed, evaluated the patient and recommend PPI and to follow up as OP. In regards to chest pain, Troponin negative x 3; ACS ruled out cardiology evaluate the patient and recommend TTE today to evaluate LVEF and r/o any RWMA .Outpatient stress test .Asa 81 mg daily.Start carvedilol 12.5 mg b.i.d. for heart rate and blood pressure controlled. Target blood pressure less than 120/80 mm Hg.Check FLP and institute appropriate therapy During the evaluation patient reported on Monday he had mild right arm and leg numbness. CT performed which shows Hypodensity in the right posterior frontal/parietal area which may indicate acute infarct.Hypodensity in the matt which may be acute or chronic infarct. MRI evaluation advised. Spoke with , who advised to perform MRI, ECHO w bubble study ,CTA head an neck and start ASA and Statin. He also advised if CTA shows large area of occlusion we can consider transferring [facility]. At 20:30, I called IMU charge nurse to get the update and she reported, patient is soon leaving for CTA head and neck.I advised the charge nurse to talk to the leaf conditioner to follow up with results and talk to to decide between transfer vs managing the patient here. Review of Systems Review of Systems: All systems reviewed & are unremarkable except as noted in HPI and below Exam Const: Other: , male, nontoxic appearance Cardio: Other: +murmur GI: Other: Diffuse abdominal tenderness. Soft, nondistended. Normoactive bowel sounds in all quadrants. Neuro: Other: A&O x4 Psych: Other: Good insight and judgment, pleasant Objective Data Vital Signs Vital Signs: Vital Signs - 24 hr 03/08/25 18:37 03/08/25 19:09 03/08/25 22:00 Temperature Pulse Rate 63 59 L 69 Respiratory Rate 18 18 Blood Pressure 169/97 H 168/90 H Pulse Oximetry 97 96 03/09/25 00:00 03/09/25 00:00 03/09/25 02:00 Temperature 97.8 F Pulse Rate 53 L 62 62 Respiratory Rate 16 Blood Pressure 149/71 H Pulse Oximetry 97 03/09/25 04:00 03/09/25 04:00 03/09/25 06:00 Temperature 98.1 F Pulse Rate 64 62 79 Respiratory Rate 16 Blood Pressure 139/76 Pulse Oximetry 95 03/09/25 07:58 03/09/25 08:00 03/09/25 10:00 Temperature 97.4 F L Pulse Rate 61 68 72 Respiratory Rate 16 Blood Pressure 131/71 Pulse Oximetry 91 03/09/25 11:25 03/09/25 12:00 03/09/25 14:00 Temperature 97.5 F L Pulse Rate 62 79 76 Respiratory Rate 24 H Blood Pressure 168/79 H Pulse Oximetry 96 03/09/25 16:00 Temperature 98.4 F Pulse Rate 69 Respiratory Rate 24 H Blood Pressure 174/85 H Pulse Oximetry 95 Intake/Output Intake/Output: Intake & Output 03/06/25 03/07/25 03/08/25 03/09/25 23:59 23:59 23:59 23:59 Intake Total 710 Output Total 700 Balance 10 Meds/Results Medications: Active Medications Generic Name Dose Route Start Last Admin Trade Name Freq PRN Reason Stop Dose Admin Acetaminophen 650 mg 03/08/25 18:11 Acetaminophen 325 Mg Tablet PO Q4H PRN Mild Pain (1-3) or Fever Amlodipine Besylate 5 mg 03/09/25 09:00 03/09/25 10:05 Amlodipine Besylate 5 Mg Tablet PO 5 mg DAILY JUAN ANTONIO Administration Hydralazine HCl 10 mg 03/08/25 22:15 Hydralazine Hcl 20 Mg/Ml Vial IV PUSH Q8H PRN BP greater than 180/90 Nitroglycerin 0.4 mg 03/08/25 19:49 Nitroglycerin Sl 0.4 Mg Tablet SUBLINGUAL Q5MIN PRN Chest Pain Pantoprazole Sodium 40 mg 03/09/25 09:00 03/09/25 10:05 Pantoprazole Sodium Iv 40 Mg Vial IV PUSH 40 mg Q12HR JUAN ANTONIO Administration Perflutren Lipid Microsphere 0 ml 03/08/25 22:09 Perflutren Lipid Microspheres 1.5 Ml Vial Diluted To 10 Ml Total Volume IV PUSH 03/11/25 22:09 ONCE PRN adequate visualization Protocol Perflutren Lipid Microsphere 0 ml 03/09/25 18:19 Perflutren Lipid Microspheres 1.5 Ml Vial Diluted To 10 Ml Total Volume IV PUSH 03/12/25 18:19 ONCE PRN adequate visualization Protocol Radiology Results: ITS Impressions Chest X-Ray 03/08/25 14:38 IMPRESSION: No acute cardiopulmonary pathology. Chest/Abdomen/Pelvis CTA 03/08/25 16:15 IMPRESSION: CHEST: 1. No pulmonary embolism. 2. No Aortic dissection. 3. No acute cardiopulmonary pathology. 4. Slightly enlarged prevascular lymph nodes. ABDOMEN/PELVIS: 1. No acute dissection or aneurysm seen. 2. No evidence of appendicitis, diverticulitis or intestinal obstruction. 3. Fat infiltration of the liver. 4. Slight thickening of the wall of the rectum. Clinical evaluation advised. Head CT 03/09/25 17:55 IMPRESSION: Hypodensity in the right posterior frontal/parietal area which may indicate acute infarct. Hypodensity in the matt which may be acute or chronic infarct. MRI evaluation advised. Physician: Luisito Gordon MD Was notified with the result of the patient at 6: 6 p.m. on March 09, 2025. Labs Labs: Laboratory Results - last 24 hr 03/08/25 03/09/25 19:56 04:02 WBC 9.9 RBC 4.34 L Hgb 14.0 Hct 41.8 L MCV 96.3 MCH 32.3 MCHC 33.5 RDW 13.2 Plt Count 258 MPV 11.3 H Immature Gran % (Auto) 0.3 Neut % (Auto) 52.9 Lymph % (Auto) 22.2 [place] % (Auto) 11.1 H Eos % (Auto) 12.1 H Baso % (Auto) 1.4 H Lymph # (Auto) 2.20 [place] # (Auto) 1.1 H Eos # (Auto) 1.2 H Baso # (Auto) 0.1 Abs Immat Gran (auto) 0.03 Absolute Neuts (auto) 5.2 Absolute Nucleated RBC 0.000 Nucleated RBC % 0.0 Sodium 140 Potassium 3.7 Chloride 107 Carbon Dioxide 26 Anion Gap 7 BUN 23 H Creatinine 1.18 Estim Creat Clear Calc 56 Estimated GFR > 60 Glucose 133 H Calcium 8.7 Total Bilirubin 0.3 AST 35 ALT 36 Alkaline Phosphatase 67 Troponin I < 0.012 Total Protein 7.0 Albumin 3.8 Triglycerides 107 Cholesterol 213 H LDL Cholesterol Direct 134 HDL Direct 40 Quality VTE Prophylaxis VTE prophylaxis: mechanical ordered Hospitalist MIPS Advance Care Plan I have confirmed that the patient's Advanced Care Plan is present, code status is documented, or surrogate decision maker is listed in patient medical record.: Yes Medication Reconciliation I have utilized all available resources to obtain, update and review the patients current medications (includes all prescriptions, OTC, herbals, cannabis, and nutritional supplements).: Yes
[2025-03-09] MEDS: ATORVASTATIN 40 MG TABLET PO (20:21)
[2025-03-09] MEDS: ASPIRIN 81 MG CHEWABLE TABLET PO (20:21)
[2025-03-09 21:06] LABS: Hemoglobin A1C 6.7 % (<5.7)
--- NOTE | 2025-03-09 22:16 | PM.EVENT ---
Event Note Event Note Event Note: Radiology called with the result of the patient's CT of the head and neck. CTA demonstrated 90% stenosis of the left side carotid and 50% stenosis of the right. There is area of narrowing of the right P1 segment of the posterior cerebral artery has well and nonvisualization of the right vertebral artery at the level of C5-6 and 7 with possible retrograde flow. I am assuming that the stroke findings and size of infarct are unchanged from prior as the CT report states ?Please refer to report of CT head performed the same day.? The patient had a CT performed due to neurologic symptoms that had started 5 days ago. Neurologic symptoms are unchanged during hospitalization. The patient is not a candidate for acute intervention. The patient will likely need carotid stent or endarterectomy in the next few weeks. This can be performed as outpatient. MRI of the brain and brainstem is been ordered for a.m.. Echocardiogram has also been ordered. Will allow for permissive hypertension. Although the patient is beyond the 72 hour window and would benefit from bringing down the blood pressures at this point.
--- NOTE | 2025-03-09 22:19 | PC.NURSE ---
Spoke with Dr. Lerma regarding head/carotid CT results. Dr. Lerma states no need to transfer pt at this time unless he is experiencing new neurological deficits. Upon exam, with use of surgical aides teacher, pt states that he has some numbness/tingling in his right hand and right leg. Neuro exam was negative for deficits, with the exception of mild deficit during right heel to left mattson exam. MRI ordered for tomorrow morning.
[2025-03-10] VITALS (16 sets, daily range): BP systolic 124–161; BP diastolic 67–82; PULSE 63–98; RESP 16–20; TEMP 36.4–37; O2SAT 97–99
--- NOTE | 2025-03-10 | ECHO_ITS ---
Patient Info Name: Donald Gonzalez Age: 55 years : 1970 Gender: Male Ht: 66 in Wt: 172 lbs BSA: 1.92 m2 HR: 88 bpm BP: 124 / 67 mmHg Heart Rhythm: Sinus Rhythm Technical Quality: Good Exam Date: 03/10/2025 10:58 AM Exam Location: Echo Lab Patient Status: Outpatient Admit Date: 03/08/2025 Staff Ordering Physician: Luisito Gordon MD Quality Assurance Nurse: Ana Velazquez RDCS Attending Provider: Lolita Olguin MD Exam Type: CA echo doppler w bubble study Study Info Indications - Acute CVA Complete two-dimensional, color flow and Doppler transthoracic echocardiogram is performed with agitated saline. Contrast/Agitated Saline Contrast/Ag. Saline: Agitated Saline Amount: 20.00 ml Administered By: Ana Velazquez RDCS Existing IV Access: Yes IV Access Condition: patent with no signs of infiltration Summary 1. There is normal biventricular size and systolic function. 2. There is mild concentric left ventricular hypertrophy with grade 1 diastolic dysfunction. 3. There is paradoxical low-flow low gradient severe aortic stenosis. Left Ventricle The left ventricle is normal size and systolic function. There is mild concentric ventricular hypertrophy. The left ventricular ejection fraction is visually estimated to be 60-65%. There is grade 1 diastolic dysfunction. Right Ventricle The right ventricle is normal in size and systolic function. Left Atria The left atrium is normal size. Right Atria The right atrium is normal size. Atrial Septum Agitated saline study did not show any [id number] shunt. Aortic Valve The aortic valve is likely trileaflet and calcified. There is paradoxical low-flow low gradient severe aortic stenosis. Pulmonic Valve The pulmonic valve is grossly normal. There is trace pulmonic valve regurgitation. Mitral Valve The mitral valve leaflets are sclerotic but opens well. There is trace mitral regurgitation. Tricuspid Valve The tricuspid valve is normal. There is trace tricuspid regurgitation. Pericardium/Pleural Pericardium is normal in appearance with no evidence for significant pericardial effusion. Inferior Vena Cava Inferior vena cava is not well visualized. Aorta The aortic root at the level of the sinus of Valsalva measures 3.1 cm in diameter. Left Ventricular Outflow Tract Name Value Normal LVOT 2D LVOT Diameter 2.0 cm LVOT Doppler LVOT Peak Gradient 3 mmHg LVOT Mean Gradient 2 mmHg LVOT VTI 18 cm LVOT VTI/AV VTI Ratio 0.3 LVOT Stroke Volume 58 ml LVOT CO 3.9 l/min LVOT CI 2.0 l/min/m2 Pulmonic Valve Name Value Normal RVOT Doppler RVOT Peak Gradient 3 mmHg PV Doppler PV Peak Gradient 6 mmHg Mitral Valve Name Value Normal MV Doppler MV Decel [place] 176 cm/s2 MV PHT 86 ms MV Area (PHT) 2.6 cm2 4.0-5.0 MV Diastolic Function MV E Peak Velocity 52 cm/s MV A Peak Velocity 74 cm/s MV E/A 0.7 MV Decel Time 297 ms MV Annular TDI MV E/e' (Septal) 10.3 <=8.0 MV E/e' (Lateral) 7.7 <=8.0 MV E/e' (Average) 9.0 Tricuspid Valve Name Value Normal TV Regurgitation Doppler TR Peak Velocity 238 cm/s TR Peak Gradient 23 mmHg Estimated PAP/RSVP RA Pressure 10 mmHg <=5 PA Systolic Pressure 33 mmHg <36 RV Systolic Pressure 33 mmHg <36 Aorta Name Value Normal Ascending Aorta Ao Root Diameter (MM) 3.3 cm Ao Root Diam Index (MM) 1.7 cm/m2 Aortic Valve Name Value Normal AV Doppler AV Peak Velocity 295 cm/s AV Peak Gradient 35 mmHg AV Mean Gradient 20 mmHg AV VTI 58 cm AV Area (Cont Eq VTI) 1.0 cm2 >=3.0 AV Area (Cont Eq Nader) 0.9 cm2 AV Regurgitation 2D LVOT Area 3.3 cm2 Ventricles Name Value Normal LV Dimensions 2D/MM IVS Diastolic Thickness (2D) 1.4 cm 0.6-1.0 LVID Diastole (2D) 4.3 cm 4.2-5.8 LVIW Diastolic Thickness (2D) 1.4 cm 0.6-1.0 LVID Systole (2D) 2.9 cm 2.5-4.0 LVOT Diameter 2.0 cm LV Mass (2D Cubed) 227.68 g 88.00-224.00 LV Mass Index (2D Cubed) 118 g/m2 49-115 Relative Wall Thickness (2D) 0.64 LV Fractional Shortening/Ejection Fraction 2D/MM LV Fractional Shortening (2D) 32 % 25-43 LV EF (2D Teicholz) 61 % 52-72 LV Diastolic Volume (4C MOD) 81 ml LV EF (4C MOD) 63 % LV Diastolic Volume (2C MOD) 78 ml LV EF (2C MOD) 62 % LV Diastolic Volume (BP MOD) 81 ml 62-150 LV Diastolic Volume Index (BP MOD) 42 ml/m2 34-74 LV Systolic Volume (BP MOD) 31 ml 21-61 LV Systolic Volume Index (BP MOD) 16 ml/m2 11-31 LV EF (BP MOD) 61 % 52-72 LV Diastolic Length (4C) 8.8 cm LV Systolic Length (4C) 6.4 cm LV Stroke Volume (4C MOD) 51 ml Atria Name Value Normal LA Dimensions LA Dimension (MM) 5.1 cm 3.0-4.1 LA Volume (4C A-L) 40 ml LA Volume (BP A-L) 49 ml RA Dimensions RA Area (4C) 13.3 cm2 <=18.0 Report Signatures
[2025-03-10] MEDS: hydrALAZINE HCL 20 MG/ML VIAL 10 MG IV PUSH (00:13)
--- NOTE | 2025-03-10 08:57 | PCSTNOTE ---
Please refer to the Bedside Swallow Evaluation in the EMR. Please note, silent aspiration cannot be ruled out at bedside.
[2025-03-10] MEDS: ASPIRIN 81 MG CHEWABLE TABLET PO (10:00)
[2025-03-10] MEDS: ATORVASTATIN 40 MG TABLET PO (10:00)
[2025-03-10] MEDS: PANTOPRAZOLE SODIUM IV 40 MG VIAL IV PUSH ×2 (10:00→20:09)
[2025-03-10] MEDS: amLODIPine BESYLATE 5 MG TABLET PO (10:00)
--- NOTE | 2025-03-10 12:13 | WPDNEURCNPN ---
Assessment and Plan Assessment and plan (1) CVA (cerebral vascular accident): Code(s): I63.9 - Cerebral infarction, unspecified Status: Acute (2) Left-sided extracranial carotid artery stenosis: Code(s): I65.22 - Occlusion and stenosis of left carotid artery Status: Acute Assessment and Plan: CT angiogram of the head and neck shows 90% stenosis the left internal carotid artery 50% narrowing of the right internal carotid artery. Also right posterior cerebral artery shows narrowing in the P1 segment. Plan The patient was started on aspirin 81 mg a day and atorvastatin 40 mg a day yesterday. An MRI of the brain and echocardiogram results will be followed up. Although the patient feels the right upper limb is not as strong as it should it used to be I did not find any significant weakness but certainly he has reasons to have stroke involving right side in view of the 90% narrowing in the left internal carotid artery. Infarct in the matt and the right posterior frontal parietal area appear to be most likely coincidental finding nevertheless need to be followed up. Consult date: 03/10/25 HPI: Donald Gonzalez is a 55 year old male was seen for neurologic evaluation. Patient came in with the chest pain 3 days ago and after the workup it was decided that he did not have any significant cardiac disease and he was about to discharge when he complained of some weakness in the right hand. CT scan of the brain was performed which shows possible acute infarct in the right posterior frontal and parietal area and also a lesion in the matt. Radiologist suggested an MRI of the brain. Patient denies having any stroke-like symptoms in the past. Interview is conducted with the help of an electromechanical assembler since he is unable to talk in [place] and interpreted was indeed very helpful. Furthermore the hospitalist team and discussed with me last night and had suggested a CT angiogram of the head and neck. This shows 90% stenosis in the left internal carotid artery and 50% the right internal carotid artery. In addition the P1 segment of the right posterior cerebral artery shows narrowing. An echocardiogram and MRI of the brain has been ordered. Review of Systems Review of Systems: Still has mild weakness of the right hand All systems reviewed & are unremarkable except as noted in HPI and below PMFSH Past Medical History Medical History (Updated 03/10/25 @ 12:19 by Arvin Hampton MD) Left-sided extracranial carotid artery stenosis Colon cancer screening Dark stools Dyspepsia Eye trauma branch hit eye, has small speck in it that doesn't bother him Social History Social History Smoking status: Former smoker Alcohol intake: former Substance use: never Do You Feel Safe in your Home?: Yes Lack of Transportation: No Lack of Food: Never True Current Housing: I Have Housing Concerned About Future Housing: YES Difficulty Paying Gas/Electric Bills: YES Difficulty Paying for Meds: YES Currently Unemployed: No Education: Never Attended/Kindergarten Only Difficulty w/ Childcare or Family Care: No Spiritual care concerns: No Meds Home Medications and Allergies Home Medications ?Medication ?Instructions ?Recorded ?Confirmed ?Type No Home Medications 03/08/25 03/08/25 History Allergies Allergy/AdvReac Type Severity Reaction Status Date / Time No Known Allergies Allergy Verified 03/08/25 13:32 Vital Signs Vital Signs - 24 hr 03/09/25 14:00 03/09/25 16:00 03/09/25 19:09 Temperature 98.4 F 97.6 F Pulse Rate 76 69 71 Respiratory Rate 24 H 16 Blood Pressure 174/85 H 156/75 H Pulse Oximetry 95 96 Oxygen Delivery 03/09/25 20:00 03/09/25 20:00 03/09/25 22:00 Temperature Pulse Rate 69 74 Respiratory Rate Blood Pressure Pulse Oximetry Oxygen Delivery Room Air 03/09/25 23:21 03/09/25 23:22 03/09/25 23:33 Temperature 97.6 F Pulse Rate 67 Respiratory Rate 22 H Blood Pressure 190/92 H 189/98 H 188/90 H Pulse Oximetry 96 Oxygen Delivery 03/10/25 00:00 03/10/25 00:00 03/10/25 02:00 Temperature Pulse Rate 98 66 Respiratory Rate Blood Pressure Pulse Oximetry Oxygen Delivery Room Air 03/10/25 03:20 03/10/25 04:00 03/10/25 04:00 Temperature 97.9 F Pulse Rate 74 88 Respiratory Rate 18 Blood Pressure 124/67 Pulse Oximetry 97 Oxygen Delivery Room Air 03/10/25 06:00 03/10/25 08:00 03/10/25 11:33 Temperature 97.6 F 98 F Pulse Rate 67 74 71 Respiratory Rate 16 16 Blood Pressure 146/80 H 161/82 H Pulse Oximetry 98 98 Oxygen Delivery Exam Const: General: cooperative, well developed and alert Orientation/consciousness: patient oriented x3 HENMT: Head: atraumatic Eyes: Alignment and Position: position normal Pupils: Equal, round and reactive pupils present EOM: EOMs intact bilaterally Neck: Neck: supple Resp: Effort & Inspection: normal respiratory effort Auscultation: clear to auscultation bilaterally Cardio: Other: aortic systolic murmur was noted. No carotid bruit. Neuro: General: patient oriented x3 Cranial nerves: Yes CN's II-XII intact bilaterally, Yes facial sensation intact/muscles of mastication intact, Yes Equal, round and reactive pupils present, Yes facial symmetry and Yes Midline tongue present Cognition (Neuro): normal cognition Speech: normal speech Motor exam (neuro): 5/5 motor strength present throughout Sensory Exam: normal sensation Coordination: [id number] test normal and Normal rapid alternating movements of the distal upper extremity present (Neuro) Extrem: General: normal to inspection Psych: Mental Status: mental status grossly normal Affect: normal affect Results Labs 03/09/25 04:02 03/09/25 04:02 Imaging Attestation: I personally reviewed and interpreted this imaging study as follows: ( CT scan of brain) My impression: an area of hypodensity in the matt and possibly the right posterior frontal or parietal area. No evidence for bleeding. Radiologist's impression: Similar
--- NOTE | 2025-03-10 14:02 | PM.IMPN ---
Progress Note: A&P Assessment and Plan (1) Chest pain: Qualifiers: Chest pain type: unspecified Qualified Code(s): R07.9 - Chest pain, unspecified Code(s): R07.9 - Chest pain, unspecified Status: Acute Assessment and Plan: - EKG, initial: Sinus rhythm, rate 74, LVH and ST-T change, no previous EKG available for comparison. - CXR: No acute cardiopulmonary pathology Troponin negative No chest pain this morning Cardiology eval pending continue Aspirin and Lipitor pending cards eval (2) Hypertension: Qualifiers: Hypertension type: primary hypertension Qualified Code(s): I10 - Essential (primary) hypertension Code(s): I10 - Essential (primary) hypertension Status: Acute Assessment and Plan: - previous history of hypertension, not currently on medications permissive hypertension (3) Abdominal pain: Qualifiers: Abdominal location: generalized Qualified Code(s): R10.84 - Generalized abdominal pain Code(s): R10.9 - Unspecified abdominal pain Status: Acute Assessment and Plan: - diffuse abdominal pain/epigastric pain for the past year. Has reduced spicy foods for some time which helped to reduce his acid reflux but did not help his abdominal pain. He reports food worsens the pain. Also reporting dark tarry stools. Clinical picture concerning for bleeding gastric ulcer. - GI cocktail x1 - pantoprazole IV b.i.d - GI consulted recommended outpatient follow up (4) Black stools: Code(s): K92.1 - Melena Status: Acute Assessment and Plan: - reporting dark tarry stools, not currently on any supplements - clinical picture concerning for gastric ulcer. CT also showed abnormal findings of the rectum. GI recommends outpatient follow up (5) Abnormal CT of the abdomen: Code(s): R93.5 - Abnormal findings on diagnostic imaging of other abdominal regions, including retroperitoneum Status: Acute Assessment and Plan: - CT showed slight thickening of the wall of the rectum. no previous colonoscopies. - GI consulted (6) CVA (cerebral vascular accident): Code(s): I63.9 - Cerebral infarction, unspecified Status: Acute Assessment and Plan: CT Head:Hypodensity in the right posterior frontal/parietal area which may indicate acute infarct.Hypodensity in the matt which may be acute or chronic infarct. MRI evaluation advised. MRI acute acute infarct ECHO: Pending Add aspirin and statin LDL goal less than 70 Permissive hypertension less than 220/120 if no thrombolytics. Neurology eval noted PT/OT eval Bedside swallow eval Plan Left carotid artery stenosis CTA head and neck 90% occlusion continue Aspirin and Lipitor, LDL 134 Calling [facility] for possible transfer (Pradeep Gresham [phone] [facility] vascular surgery) Proctitis CT AP showed proctitis and patient had melena stool started on Augmentin DVT prophylaxis on SCDs, no AC due to GI bleed Subjective Date/time seen: 03/10/25 14:02 Interval history: 55 y/o M with no significant PMH presents here with intermittent chest pain. The patient presents here on 03/08 for further evaluation of intermittent chest pain. He reports this is been ongoing for the past 3-4 days. He describes the chest pain as midsternal with some radiation to his left side, and aggravated by walking. No alleviating factors. Reports associated shortness of breath, nausea, vomiting, diaphoretic, intermittent constipation. Denies palpitations. He arrives significantly hypertensive at 195/100. He has no known history of HTN. Along with the intermittent chest pain, the patient also reports diffuse abdominal pain. This has been present for the past year. He reports it comes and goes. Pain worsens when he eats and is mores so epigastric. He has not been using OTC such as TYL or NSAIDs. Patient has been avoiding spicy foods for the past 5 years - will occasionally eat a little. He reports associated dark tarry stools. He has a history of smoking and alcohol use, however quit 12 years ago. 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 Initial VS at presentation: 97.3? F, HR 80, R 16, 195/100, and 98% on RA. ED workup showed: WBC 12.5, no anemia, normal coags, no significant electrolyte derangements, creatinine 1.22 and normal GFR, troponin negative x2, and BNP 112. CXR showed no acute cardiopulmonary pathology. Chest/abdomen/pelvis CTA showed no PE, no dissection, no acute cardiopulmonary pathology, slightly enlarged prevascular lymph nodes, no acute dissection/aneurysm, no evidence of appendicitis/diverticulitis/intestinal obstruction, fat infiltration of the liver, slight thickening of the wall the rectum. Initial EKG showed sinus rhythm, left ventricular hypertrophy and ST-T change. No previous EKG available for comparison. In regards to possible GI bleed, evaluated the patient and recommend PPI and to follow up as OP. In regards to chest pain, Troponin negative x 3; ACS ruled out cardiology evaluate the patient and recommend TTE today to evaluate LVEF and r/o any RWMA .Outpatient stress test .Asa 81 mg daily.Start carvedilol 12.5 mg b.i.d. for heart rate and blood pressure controlled. Target blood pressure less than 120/80 mm Hg.Check FLP and institute appropriate therapy During the evaluation patient reported on Monday he had mild right arm and leg numbness. CT performed which shows Hypodensity in the right posterior frontal/parietal area which may indicate acute infarct.Hypodensity in the matt which may be acute or chronic infarct. MRI evaluation advised. Spoke with , who advised to perform MRI, ECHO w bubble study ,CTA head an neck and start ASA and Statin. He also advised if CTA shows large area of occlusion we can consider transferring to [facility]. At 20:30, I called IMU charge nurse to get the update and she reported, patient is soon leaving for CTA head and neck.I advised the charge nurse to talk to the plywood matcher to follow up with results and talk to to decide between transfer vs managing the patient here. Review of Systems Review of Systems: All systems reviewed & are unremarkable except as noted in HPI and below Exam Const: Other: , male, nontoxic appearance Cardio: Other: +murmur GI: Other: Diffuse abdominal tenderness. Soft, nondistended. Normoactive bowel sounds in all quadrants. Neuro: Other: A&O x4 Psych: Other: Good insight and judgment, pleasant Objective Data Vital Signs Vital Signs: Vital Signs - 24 hr 03/09/25 16:00 03/09/25 19:09 03/09/25 20:00 Temperature 98.4 F 97.6 F Pulse Rate 69 71 Respiratory Rate 24 H 16 Blood Pressure 174/85 H 156/75 H Pulse Oximetry 95 96 Oxygen Delivery Room Air 03/09/25 20:00 03/09/25 22:00 03/09/25 23:21 Temperature 97.6 F Pulse Rate 69 74 67 Respiratory Rate 22 H Blood Pressure 190/92 H Pulse Oximetry 96 Oxygen Delivery 03/09/25 23:22 03/09/25 23:33 03/10/25 00:00 Temperature Pulse Rate Respiratory Rate Blood Pressure 189/98 H 188/90 H Pulse Oximetry Oxygen Delivery Room Air 03/10/25 00:00 03/10/25 02:00 03/10/25 03:20 Temperature 97.9 F Pulse Rate 98 66 74 Respiratory Rate 18 Blood Pressure 124/67 Pulse Oximetry 97 Oxygen Delivery 03/10/25 04:00 03/10/25 04:00 03/10/25 06:00 Temperature Pulse Rate 88 67 Respiratory Rate Blood Pressure Pulse Oximetry Oxygen Delivery Room Air 03/10/25 08:00 03/10/25 08:00 03/10/25 10:00 Temperature 97.6 F Pulse Rate 74 71 76 Respiratory Rate 16 Blood Pressure 146/80 H Pulse Oximetry 98 Oxygen Delivery 03/10/25 11:33 03/10/25 12:00 Temperature 98 F Pulse Rate 71 63 Respiratory Rate 16 Blood Pressure 161/82 H Pulse Oximetry 98 Oxygen Delivery Intake/Output Intake/Output: Intake & Output 03/07/25 03/08/25 03/09/25 03/10/25 23:59 23:59 23:59 23:59 Intake Total 1500 730 Output Total 1350 Balance 150 730 Meds/Results Medications: Active Medications Generic Name Dose Route Start Last Admin Trade Name Warrenq PRN Reason Stop Dose Admin Acetaminophen 650 mg 03/08/25 18:11 Acetaminophen 325 Mg Tablet PO Q4H PRN Mild Pain (1-3) or Fever Amlodipine Besylate 5 mg 03/09/25 09:00 03/09/25 10:05 Amlodipine Besylate 5 Mg Tablet PO 5 mg DAILY JUAN ANTONIO Administration Aspirin 81 mg 03/09/25 18:30 03/09/25 20:21 Aspirin 81 Mg Chewable Tablet PO 81 mg DAILY@0800 JUAN ANTONIO Administration Atorvastatin Calcium 40 mg 03/09/25 18:30 03/09/25 20:21 Atorvastatin 40 Mg Tablet PO 40 mg DAILY JUAN ANTONIO Administration Hydralazine HCl 10 mg 03/09/25 23:52 03/10/25 00:13 Hydralazine Hcl 20 Mg/Ml Vial IV PUSH 10 mg Q4H PRN Administration Blood Pressure - High Nitroglycerin 0.4 mg 03/08/25 19:49 Nitroglycerin Sl 0.4 Mg Tablet SUBLINGUAL Q5MIN PRN Chest Pain Pantoprazole Sodium 40 mg 03/09/25 09:00 03/09/25 20:30 Pantoprazole Sodium Iv 40 Mg Vial IV PUSH 40 mg Q12HR JUAN ANTONIO Administration Perflutren Lipid Microsphere 0 ml 03/08/25 22:09 Perflutren Lipid Microspheres 1.5 Ml Vial Diluted To 10 Ml Total Volume IV PUSH 03/11/25 22:09 ONCE PRN adequate visualization Protocol Perflutren Lipid Microsphere 0 ml 03/09/25 18:19 Perflutren Lipid Microspheres 1.5 Ml Vial Diluted To 10 Ml Total Volume IV PUSH 03/12/25 18:19 ONCE PRN adequate visualization Protocol Radiology Results: ITS Impressions Chest X-Ray 03/08/25 14:38 IMPRESSION: No acute cardiopulmonary pathology. Chest/Abdomen/Pelvis CTA 03/08/25 16:15 IMPRESSION: CHEST: 1. No pulmonary embolism. 2. No Aortic dissection. 3. No acute cardiopulmonary pathology. 4. Slightly enlarged prevascular lymph nodes. ABDOMEN/PELVIS: 1. No acute dissection or aneurysm seen. 2. No evidence of appendicitis, diverticulitis or intestinal obstruction. 3. Fat infiltration of the liver. 4. Slight thickening of the wall of the rectum. Clinical evaluation advised. Head CT 03/09/25 17:55 IMPRESSION: Hypodensity in the right posterior frontal/parietal area which may indicate acute infarct. Hypodensity in the matt which may be acute or chronic infarct. MRI evaluation advised. Physician: Luisito Gordon MD Was notified with the result of the patient at 6: 6 p.m. on March 09, 2025. Head/Neck CTA 03/09/25 21:19 IMPRESSION: 1. CTA head and neck. Percent stenosis per NASCET criteria is 90% on the left side and 50% on the right side. 2. Area of narrowing in the right P1 segment of the posterior cerebral artery. 3. Nonvisualization of the right vertebral artery at the levels of C5, C6 and C7. Retrograde flow is possible. Dr. Lerma was notified with the result of the patient at 10:5 p.m. on March 09, 2025. Brain MRI 03/10/25 12:43 IMPRESSION: 1. Acute infarct at the medial left matt. 2. Mild scattered periventricular predominant nonspecific white matter T2 hyperintensity consistent with chronic small vessel ischemic disease. Labs Labs: Laboratory Results - last 24 hr 03/09/25 03:58 Hemoglobin A1c 6.7 H Quality VTE Prophylaxis VTE prophylaxis: mechanical ordered
[2025-03-10] MEDS: AMOXICILLIN/CLAVULANATE K 875-125 MG TAB 1 TABLET PO (20:09)
--- NOTE | 2025-03-10 20:30 | PC.NURSE ---
Pt transferred to [facility] room 7581-2 ([phone]) for vascular surgery evaluation. Dr. Alegria accepting physician. Supervisor [employer] used. Pt verbalized understanding of transfer. No questions verbalized to staff nurse or EMS. All belongings, including cell phone, systems consultant, and glasses sent with pt.
--- NOTE | 2025-03-11 08:32 | P.TS_ITS ---
Transfer Discharge Sum: Prov Provider Date of admission: 03/08/25 18:11 Primary care physician: [employer] PHYSICIAN Admitting clinician: Randa Patricio MD Consults: 03/08/25 Consult to Physician Routine Comment: Consulting Provider: Jose C Reese business transformation consultant/MD group to consult: GI Reason for consultation: ?gastric ulcer, abnormal rectum imaging, no prior scopes Has provider been notified: Yes 03/08/25 18:12 Consult to Physician Routine Comment: Consulting Provider: Kira Perez Reason for consultation: CHEST PAIN Has provider been notified: Yes 03/09/25 18:20 Consult to Physician Routine Comment: Consulting Provider: Arvin Hampton business transformation consultant/MD group to consult: Neurology Reason for consultation: CVA Has provider been notified: Yes DS: Admitting Diagnosis Discharge Date 03/10/25 Admitting Diagnosis 55 y/o M with no significant PMH presents here with intermittent chest pain. Initial VS at presentation: 97.3? F, HR 80, R 16, 195/100, and 98% on RA. ED workup showed: WBC 12.5, no anemia, normal coags, no significant electrolyte derangements, creatinine 1.22 and normal GFR, troponin negative x2, and BNP 112. CXR showed no acute cardiopulmonary pathology. Chest/abdomen/pelvis CTA showed no PE, no dissection, no acute cardiopulmonary pathology, slightly enlarged prevascular lymph nodes, no acute dissection/aneurysm, no evidence of appendicitis/diverticulitis/intestinal obstruction, fat infiltration of the liver, slight thickening of the wall the rectum. Initial EKG showed sinus rhythm, left ventricular hypertrophy and ST-T change. No previous EKG available for comparison. Patient also reported Right arm and leg numbness and CT head showed hypodensity in the right posterior frontal/parietal area which may indicate acute infarct. MRI brain showed showed acute infarct and ECHO EF 60-65% with grade 1 diastolic dysfunction. Cardiology was consulted and recommended outpatient stress test. Patient was started on Aspirin, Lipitor, Coreg 3.25mg bid. Neurology recommended continuing Aspirin and Lipitor GI was consulted and recommended outpatient endoscopy However due to Left carotid artery stenosis of 90% symptomatic with left sided brain infarct, patient was transferred to [facility] for vascular intervention. Patient was stable on tansfer Transfer Discharge Sum: Med Medications Active and Home Medications: Home Medications No Home Medications 03/08/25 [History Confirmed 03/08/25] Transfer Discharge Sum: Hosp Hospital Course Hospital course: Donald Gonzalez is a 55 year old male Time Spent with Patient Time attestation: Total time spent providing and/or coordinating transfer services:
== END 2025-03-10 20:30 | disposition home or self-care (01) ==
LOC: ANHED 17:50 → ANHIMU 20:10
PROVIDERS: General Practice; Student in an Organized Health Care Education/Training Program; Admitting Provider Family Medicine; Emergency Provider Emergency Medicine; Visit Provider Internal Medicine
DX: I63.9 Cerebral infarction, unspecified (principal); I65.22 Occlusion and stenosis of left carotid artery; R07.9 Chest pain, unspecified; R06.02 Shortness of breath; K62.89 Other specified diseases of anus and rectum; R10.84 Generalized abdominal pain; R10.13 Epigastric pain; I11.9 Hypertensive heart disease without heart failure; K92.1 Melena; R93.5 Abnormal findings on diagnostic imaging of other abdominal regions, including retroperitoneum; Z87.891 Personal history of nicotine dependence
CPT/HCPCS: 36415; 70450; 70496; 70498; 70551; 71046; 71275; 74177; 80053; 80061; 83036; 83690; 83880; 84484; 85025; 85610; 85730; 92526; 92610; 93005; 93306; 96374; 96375; 96376; 99285; A9270; G0378; J0360; J1171; J2405; J2470; Q9967